=== PATIENT | male | born 1935 | race Caucasian/White ===

== ENCOUNTER 2016-12-28 17:02 | Observation (INO) | payer MEDICARE, OTHER ==
[2016-12-28] MEDS ORDERED: ASPIRIN 81 MG CHEW PO STA (17:24)
[2016-12-28] MEDS ORDERED: NITROGLYCERIN OINT 1 INCH/GM PACKET TOPICAL STA (17:24)
--- NOTE | 2016-12-28 17:27 | ED ---
General Adult HPI - General Chief complaint: Chest Pain Stated complaint: chest pain Time Seen by Provider: 12/28/16 17:05 Source: patient, RN notes reviewed Mode of arrival: wheelchair - History of Present Illness Initial comments: This 81-year-old male who presents emergency Department complaining of chest pain and shortness of breath over the last few hours. Patient states she's had multiple episodes lasting 5-10 minutes. Patient states he has chest pain which radiates up into his left neck and down his left arm. Patient states she's always associated with shortness of breath per patient denies any diaphoretic episodes. Patient denies any nausea. Patient denies lightheadedness dizziness or near syncopal episode. Patient states she has a past medical history significant for borderline diabetes hypertension and high cholesterol and he also has a past history of a valve replacement. Patient states the cow valve so he is not on any blood thinners. Patient denies any abdominal pain. Patient denies any vomiting or diarrhea. Patient denies any fever chills or cough. Patient denies any recent injury or trauma. Patient states currently he is chest pain-free - Related Data Home Medications Medication Instructions Recorded Confirmed Atorvastatin [Lipitor] 20 mg PO HS 01/22/14 12/28/16 Aspirin EC [Ecotrin Low Dose] 81 mg PO QAM 09/14/15 12/28/16 Glimepiride [Amaryl] 1 mg PO QAM 09/14/15 12/28/16 Lisinopril [Zestril] 20 mg PO QAM 09/14/15 12/28/16 Nitroglycerin Sl Tabs [Nitrostat] 0.4 mg SUBLINGUAL Q5M PRN 09/14/15 12/28/16 amLODIPine [Norvasc] 5 mg PO DAILY 09/14/15 12/28/16 Carvedilol [Coreg] 12.5 mg PO BID 12/28/16 12/28/16 Lisinopril [Zestril] 10 mg PO HS 12/28/16 12/28/16 Allergies Allergy/AdvReac Type Severity Reaction Status Date / Time No Known Allergies Allergy Verified 12/28/16 17:28 Review of Systems ROS Statement: Those systems with pertinent positive or pertinent negative responses have been documented in the HPI. ROS Other: All systems not noted in ROS Statement are negative. Past Medical History Past Medical History: Coronary Artery Disease (CAD), Chest Pain / Angina, Diabetes Mellitus, Hyperlipidemia, Hypertension Additional Past Medical History / Comment(s): HX FREQUENT CONSTIPATION, HEART MURMUR, POLYPS, DIVERTICULI. PSA ALWAYS HIGH History of Any Multi-Drug Resistant Organisms: None Reported Past Surgical History: Appendectomy, Heart Catheterization, Hernia Repair Additional Past Surgical History / Comment(s): HEART CATH 07-02-14, hemorrhoidectomy. CATARACTS-WENDY. 2012. Aortic valve replacement 07/09/14 Past Anesthesia/Blood Transfusion Reactions: No Reported Reaction Past Psychological History: No Psychological Hx Reported Smoking Status: Former smoker Past Alcohol Use History: Rare Past Drug Use History: None Reported - Past Family History Sister(s) Family Medical History: Cancer, Deep Vein Thrombosis (DVT) Additional Family Medical History / Comment(s): 2 SISTERS HAD DVT'S IN LEGS, ONE HAD OVARIAN CA General Exam - General Exam Comments Initial Comments: GENERAL: Patient is well-developed and well-nourished. Patient is nontoxic and well- hydrated and is in mild distress. ENT: Neck is soft and supple. No significant lymphadenopathy is noted. Oropharynx is clear. Moist mucous membranes. Neck has full range of motion without eliciting any pain. EYES: The sclera were anicteric and conjunctiva were pink and moist. Extraocular movements were intact and pupils were equal round and reactive to light. Eyelids were unremarkable. PULMONARY: Unlabored respirations. Good breath sounds bilaterally. No audible rales rhonchi or wheezing was noted. CARDIOVASCULAR: There is a regular rate and rhythm without any murmurs gallops or rubs. ABDOMEN: Soft and nontender with normal bowel sounds. No palpable organomegaly was noted. There is no palpable pulsatile mass. SKIN: Skin is clear with no lesions or rashes and otherwise unremarkable. NEUROLOGIC: Patient is alert and oriented x3. Cranial nerves II through XII are grossly intact. Motor and sensory are also intact. Normal speech, volume and content. Symmetrical smile. MUSCULOSKELETAL: Normal extremities with adequate strength and full range of motion. No lower extremity swelling or edema. No calf tenderness. LYMPHATICS: No significant lymphadenopathy is noted PSYCHIATRIC: Normal psychiatric evaluation. Normal interpersonal interactions appears functionally intact in deals appropriately with others. No signs of depression. No signs of anxiety Course Vital Signs 12/28/16 12/28/16 12/28/16 17:05 17:45 18:51 Temperature 97.6 F Pulse Rate 60 56 L 56 L Respiratory 18 18 18 Rate Blood Pressure 185/75 173/77 182/86 O2 Sat by Pulse 96 97 97 Oximetry Medical Decision Making - Medical Decision Making EKG shows a normal sinus rhythm at 62 bpm MA interval 208 QRSs 162 QT intervals 458 QTC is 464. Patient's EKG shows a left bundle branch block I compared this EKG to an old EKG no acute changes are noted. Chest x-ray showed no acute abnormality. I started the patient on heparin. Because of the patient's intermittent symptoms I believe the patient is having unstable angina. I spoke with the primary doctor I admitted the patient I consult for continued heparin and aspirin Nitropaste on the floor. - Lab Data Result diagrams: 12/28/16 17:28 12/28/16 17:28 Lab Results 12/28/16 12/28/16 12/28/16 Range/Units 17:28 17:28 17:28 WBC 6.6 (3.8-10.6) k/uL RBC 5.32 (4.30-5.90) m/uL Hgb 15.7 (13.0-17.5) gm/dL Hct 46.5 (39.0-53.0) % MCV 87.4 (80.0-100.0) fL MCH 29.5 (25.0-35.0) pg MCHC 33.7 (31.0-37.0) g/dL RDW 13.4 (11.5-15.5) % Plt Count 177 (150-450) k/uL Neutrophils % 49 % Lymphocytes % 39 % Monocytes % 7 % Eosinophils % 2 % Basophils % 1 % Neutrophils # 3.3 (1.3-7.7) k/uL Lymphocytes # 2.6 (1.0-4.8) k/uL Monocytes # 0.4 (0-1.0) k/uL Eosinophils # 0.1 (0-0.7) k/uL Basophils # 0.1 (0-0.2) k/uL PT (9.0-12.0) sec INR (<1.1) APTT (22.0-30.0) sec Sodium 141 (137-145) mmol/L Potassium 4.3 (3.5-5.1) mmol/L Chloride 108 H (98-107) mmol/L Carbon Dioxide 21 L (22-30) mmol/L Anion Gap 12 mmol/L BUN 28 H (9-20) mg/dL Creatinine 1.19 (0.66-1.25) mg/dL Est GFR (MDRD) Af Amer >60 (>60 ml/min/1.73 sqM) Est GFR (MDRD) Non-Af 59 (>60 ml/min/1.73 sqM) Glucose 118 H (74-99) mg/dL Calcium 9.4 (8.4-10.2) mg/dL Magnesium 1.8 (1.6-2.3) mg/dL Total Bilirubin 0.8 (0.2-1.3) mg/dL AST 27 (17-59) U/L ALT 37 (21-72) U/L Alkaline Phosphatase 92 (38-126) U/L Total Creatine Kinase 57 (55-170) U/L CK-MB (CK-2) 0.9 (0.0-2.4) ng/mL CK-MB (CK-2) Rel Index 1.6 Troponin I <0.012 (0.000-0.034) ng/mL Total Protein 7.7 (6.3-8.2) g/dL Albumin 4.4 (3.5-5.0) g/dL / Range/Units 17:28 WBC (3.8-10.6) k/uL RBC (4.30-5.90) m/uL Hgb (13.0-17.5) gm/dL Hct (39.0-53.0) % MCV (80.0-100.0) fL MCH (25.0-35.0) pg MCHC (31.0-37.0) g/dL RDW (11.5-15.5) % Plt Count (150-450) k/uL Neutrophils % % Lymphocytes % % Monocytes % % Eosinophils % % Basophils % % Neutrophils # (1.3-7.7) k/uL Lymphocytes # (1.0-4.8) k/uL Monocytes # (0-1.0) k/uL Eosinophils # (0-0.7) k/uL Basophils # (0-0.2) k/uL PT 10.6 (9.0-12.0) sec INR 1.0 (<1.1) APTT 21.9 L (22.0-30.0) sec Sodium (137-145) mmol/L Potassium (3.5-5.1) mmol/L Chloride (98-107) mmol/L Carbon Dioxide (22-30) mmol/L Anion Gap mmol/L BUN (9-20) mg/dL Creatinine (0.66-1.25) mg/dL Est GFR (MDRD) Af Amer (>60 ml/min/1.73 sqM) Est GFR (MDRD) Non-Af (>60 ml/min/1.73 sqM) Glucose (74-99) mg/dL Calcium (8.4-10.2) mg/dL Magnesium (1.6-2.3) mg/dL Total Bilirubin (0.2-1.3) mg/dL AST (17-59) U/L ALT (21-72) U/L Alkaline Phosphatase (38-126) U/L Total Creatine Kinase (55-170) U/L CK-MB (CK-2) (0.0-2.4) ng/mL CK-MB (CK-2) Rel Index Troponin I (0.000-0.034) ng/mL Total Protein (6.3-8.2) g/dL Albumin (3.5-5.0) g/dL Critical Care Time Critical Care Time: Yes Total Critical Care Time: 35 Disposition Clinical Impression: Unstable angina pectoris Disposition: ADMITTED IP TO THIS [facility] Time of Disposition: 19:03
[2016-12-28 17:43] LABS: Basophils # (A) 0.1 k/uL (0-0.2); Basophils % (A) 1 %; CH 30.4; CHCM 34.9; Eosinophils # (A) 0.1 k/uL (0-0.7); Eosinophils % (A) 2 %; HCT 46.5 % (39.0-53.0); HDW 2.77; HGB 15.7 gm/dL (13.0-17.5); Luc # (Auto) 0.14; Luc % (Auto) 2; Lymphocytes # (A) 2.6 k/uL (1.0-4.8); Lymphocytes % (A) 39 %; MCH 29.5 pg (25.0-35.0); MCHC 33.7 g/dL (31.0-37.0); MCV 87.4 fL (80.0-100.0); Mean Platelet Volume 7.4; Monocytes # (A) 0.4 k/uL (0-1.0); Monocytes % (A) 7 %; Neutrophils # (A) 3.3 k/uL (1.3-7.7); Neutrophils % (A) 49 %; RBC 5.32 m/uL (4.30-5.90); RDW 13.4 % (11.5-15.5); WBC 6.6 k/uL (3.8-10.6); WBC (Perox) 6.62
[2016-12-28 17:51] LABS: Prothrombin Time 10.6 sec (9.0-12.0)
[2016-12-28 17:53] LABS: ALT 37 U/L (21-72); AST 27 U/L (17-59); Alkaline Phosphatase 92 U/L (38-126); Anion Gap 12 mmol/L; Blood Urea Nitrogen 28 mg/dL (9-20); Calcium 9.4 mg/dL (8.4-10.2); Carbon Dioxide 21 mmol/L (22-30); Chloride 108 mmol/L (98-107); Glucose 118 mg/dL (74-99); Magnesium 1.8 mg/dL (1.6-2.3); Non-African American GFR(MDRD) 59 (>60 ml/min/1.73 sqM); Potassium 4.3 mmol/L (3.5-5.1); Sodium 141 mmol/L (137-145); Total Bilirubin 0.8 mg/dL (0.2-1.3); Total Protein 7.7 g/dL (6.3-8.2)
[2016-12-28 17:57] LABS: Partial Thromboplastin Time 21.9 sec (22.0-30.0)
[2016-12-28 18:02] LABS: Creatine Kinase 57 U/L (55-170)
[2016-12-28 18:14] LABS: Creatine Kinase MB 0.9 ng/mL (0.0-2.4); Troponin I <0.012 ng/mL (0.000-0.034)
--- NOTE | 2016-12-28 18:22 | XR ---
EXAMINATION TYPE: XR chest 2V DATE OF EXAM: 12/28/2016 5:48 PM COMPARISON: NONE HISTORY: Chest pain TECHNIQUE: Frontal and lateral views of the chest are obtained. FINDINGS: Midline sternotomy wires are present. There is no focal air space opacity, pleural effusion , or pneumothorax seen. The cardiac silhouette size is within normal limits. The osseous structure s are intact. IMPRESSION: No acute cardiopulmonary process.
[2016-12-28] MEDS ORDERED: LORazepam 2 MG/ML SYRINGE IV STA (19:02)
[2016-12-28] MEDS ORDERED: NITROGLYCERIN SL TABS 0.4 MG TAB SUBLINGUAL PRN (19:03)
[2016-12-28 21:40] LABS: Glucose,Whole Blood 123 mg/dL (75-99)
[2016-12-28] MEDS ORDERED: LISINOPRIL 10 MG TAB PO SCH (22:15)
[2016-12-28] MEDS ORDERED: ATORVASTATIN 20 MG TAB PO SCH (22:15)
[2016-12-28] MEDS: CARVEDILOL 12.5 MG TAB PO SCH (23:49)
[2016-12-29] MEDS ORDERED: NITROGLYCERIN OINT 1 INCH/GM PACKET TOPICAL SCH
[2016-12-29 01:11] LABS: Creatine Kinase 43 U/L (55-170)
[2016-12-29 01:23] LABS: Creatine Kinase MB 0.9 ng/mL (0.0-2.4); Troponin I <0.012 ng/mL (0.000-0.034)
[2016-12-29 06:11] LABS: Creatine Kinase 41 U/L (55-170)
[2016-12-29 06:17] LABS: Cholesterol 126 mg/dL (<200); HDL Cholesterol 38 mg/dL (40-60); Triglycerides 173 mg/dL (<150)
[2016-12-29 06:24] LABS: Creatine Kinase MB 0.7 ng/mL (0.0-2.4); Troponin I <0.012 ng/mL (0.000-0.034)
[2016-12-29 07:26] LABS: Glucose,Whole Blood 163 mg/dL (75-99)
[2016-12-29] MEDS ORDERED: FUROSEMIDE 10 MG/ML 4 ML VIAL IV STA (08:56)
[2016-12-29] MEDS ORDERED: amLODIPine 5 MG TAB PO SCH (09:00)
[2016-12-29] MEDS ORDERED: FUROSEMIDE 40 MG TAB PO SCH (09:00)
[2016-12-29] MEDS ORDERED: LISINOPRIL 20 MG TAB PO SCH (09:00)
[2016-12-29] MEDS ORDERED: GLIMEPIRIDE 1 MG TAB PO SCH (09:00)
[2016-12-29] MEDS ORDERED: ASPIRIN 325 MG TAB PO SCH (09:00)
[2016-12-29 09:13] VITALS: BMI 27.6
--- NOTE | 2016-12-29 09:31 | CONS ---
DATE OF CONSULTATION: This is a 81-year-old male patient of Dr. Joy Wilson who has valvular heart disease, status post aortic valve replacement in 2014. He had documented nonobstructive CAD and cardiomyopathy with ejection fraction of 30%. He presents to the hospital with shortness of breath, sometimes at night, but definitely when he walks around into the [place]. He is complaining of progressive increase in shortness of breath with exertion. In addition, he started having some neck discomfort which went down to his arm and chest at that worried him, so he came to the ER. He is on statins and aspirin. His cardiac enzymes so far have been normal x3. His LDL is 53 on dorsum 20 mg daily. He is on aspirin. He has bioprosthetic valve I do not have her BNP and p.r.n. his GFR is 59. His creatinine was 1.2. Potassium is normal. Hemoglobin is normal. Past medical history of diabetes, hypertension, dyslipidemia, coronary artery disease nonobstructive and mild chronic kidney disease stage III. SOCIAL HISTORY: He is a heavy smoker. He quit many years back. He would consume significant amounts of alcohol in the past and he has stopped. He has a left ventricular ejection fraction of 30% to 35% documented in 2014. He also had severe aortic stenosis and underwent aortic valve replacement in 2014. REVIEW OF SYSTEMS: No fever, chills, rigors. No cough or expectoration. No nausea, vomiting or diarrhea, hematuria or dysuria. No strokes or seizures. No skin lesions or musculoskeletal complaints. His main complaint is shortness of breath on exertion, shortness of breath while lying flat in bed. His medication list was reviewed and includes: 1. Amaryl. 2. Aspirin. 3. Amlodipine. 4. Lisinopril. 5. Carvedilol. 6. Atorvastatin. On examination, his blood pressure is 112/57 and 134/75 mmHg. He is afebrile, 97.4 degrees Fahrenheit. Pulse ox is normal. Respirations are normal. Head and neck examination is normal. Heart sounds S1, S2 are soft. There is a soft systolic murmur, ejection systolic murmur audible. No S3 gallop. Breath sounds are reduced bilaterally. Abdomen is soft, nontender. Extremities are warm. There is trace bilateral edema. IMPRESSION: 1. Patient presented with symptoms consistent with congestive heart failure and increasing shortness of breath on exertion and even some breathing trouble at night. 2. Atypical discomfort in the chest and the neck and the arm. 3. Known cardiomyopathy, nonischemic. 4. Valvular heart disease, status post aortic valve replacement. 5. Nonobstructive coronary artery disease, LDL is at very good levels on atorvastatin. 6. A 12-lead ECG shows sinus rhythm with a left bundle branch block pattern. SUGGEST: A 2-D echo and Doppler study to assess LV function. Consider a Lexiscan Cardiolite stress test and add Lasix 40 mg p.o. daily to his current regimen and BNP to yesterday's sample. The nitro paste can be stopped and ended up in further management thereafter.
[2016-12-29] MEDS ORDERED: AMINOPHYLLINE 500 MG/20 ML VIAL IV PRN (10:02)
[2016-12-29] MEDS ORDERED: REGADENOSON 0.4 MG/5 ML SYRINGE IV ONE (10:02)
--- NOTE | 2016-12-29 11:55 | ECHOF ---
Referral Reason:sob, avr MEASUREMENTS -------- HEIGHT: 165.1 cm WEIGHT: 77.6 kg BP: 120/40 IVSd: 1.4 cm (0.6 - 1.1) LVIDd: 4.2 cm (3.9 - 5.3) LVPWd: 1.3 cm (0.6 - 1.1) IVSs: 1.6 cm LVIDs: 4.1 cm LVPWs: 1.4 cm LA Diam: 3.8 cm (2.7 - 3.8) LAESV Index (A-L): 35.37 ml/m Ao Diam: 3.3 cm (2.0 - 3.7) LA Diam: 3.7 cm (2.7 - 3.8) MV EXCURSION: 17.354 mm (> 18.000) MV EF SLOPE: 28 mm/s (70 - 150) EPSS: 1.2 cm MV E Kingston: 0.42 m/s MV DecT: 323 ms MV A [place]: 0.73 m/s MV E/A Ratio: 0.58 AV maxP.36 mmHg AV meanP.37 mmHg RAP: 5.00 mmHg RVSP: 12.60 mmHg FINDINGS -------- Sinus rhythm. This was a technically adequate study. There is moderate concentric left ventricular hypertrophy. Overall left ventricular systolic function is low-normal with, an EF between 50 - 55 %. The right ventricle is normal in size. LA is moderately dilated 34-39 ml/m2 The right atrial size is normal. Peak/mean gradient across the Aortic Valve is 8.36mmHg / 4.37mmHg. Normally functioning bioprosthetic valve. Mild mitral annular calcification present. Mild mitral regurgitation is present. Mild tricuspid regurgitation present. There is no evidence of pulmonary hypertension. The right ventricular systolic pressure, as measured by Doppler, is 12.60mmHg. There is no pulmonic regurgitation present. The aortic root size is normal. There is no pericardial effusion. CONCLUSIONS -------- 1. There is moderate concentric left ventricular hypertrophy. 2. The right ventricular systolic pressure, as measured by Doppler, is 12.60mmHg. 3. There is no pericardial effusion. 4. Overall left ventricular systolic function is low-normal with, an EF between 50 - 55 %. 5. LA is moderately dilated 34-39 ml/m2 6. Peak/mean gradient across the Aortic Valve is 8.36mmHg / 4.37mmHg. 7. Normally functioning bioprosthetic valve. 8. Mild mitral annular calcification present. 9. Mild mitral regurgitation is present. 10. Mild tricuspid regurgitation present. 11. There is no evidence of pulmonary hypertension. AUT[employer]BILE [employer]PHOL[employer] APPRENTICE: Alda Gaona RDCS
[2016-12-29 13:02] LABS: Glucose,Whole Blood 133 mg/dL (75-99)
[2016-12-29] MEDS: CARVEDILOL 12.5 MG TAB PO SCH ×2 (13:15→18:04)
--- NOTE | 2016-12-29 14:52 | NM ---
EXAMINATION TYPE: NM stress lexiscan cardiolite DATE OF EXAM: 12/29/2016 1:14 PM COMPARISON: NONE HISTORY: Abdominal pain TECHNIQUE: After the intravenous administration of 10.91 mCi Tc 99m Sestamibi - Cardiolite resting S PECT images acquired 45 minutes post injection. The patient received 0.4mg Lexiscan, 27.0 mCi Tc 99m Sestamibi - Stress images obtained [address] injection FINDINGS: Review of stress and rest SPECT images demonstrates no distinct perfusion abnormality. Gated analysi s shows normal wall motion with an estimated left ventricular ejection fraction of 46 %. IMPRESSION: No scintigraphic evidence for reversible ischemia.
[2016-12-29 16:27] VITALS: BP 130/77; PULSE 60; RESP 14; TEMP 97.9
[2016-12-29 17:16] LABS: Glucose,Whole Blood 121 mg/dL (75-99)
--- NOTE | 2016-12-30 07:09 | HP ---
DATE OF ADMISSION: CHIEF COMPLAINT: Chest pain. HISTORY OF PRESENT ILLNESS: Mr. Felix is a 81-year-old male with known history of nonobstructive coronary artery disease and nonischemic cardiomyopathy with ejection fraction of 30-35% previously in 2013, came to the hospital with complaints of short of breath, sometimes at night patient feels like drowning. ( ) wakes up with short of breath. Patient has been having this progressively increasing short of breath with exertion. Patient also developed chest pain and neck discomfort going down his left arm and that worried him, which made him come to the hospital ER. Patient has a past history of borderline diabetes, hypertension, high cholesterol, and history of aortic valve replacement, bovine valve. Patient otherwise denied any abdominal pain, nausea or vomiting. No recent illnesses. No sick contacts at home. Denied any injury or trauma. REVIEW OF SYSTEMS: CONSTITUTIONAL: No fever. No chills. RESPIRATORY: No cough or sputum production. CARDIOVASCULAR: No chest pain. Patient does have short of breath. No leg swelling. ABDOMEN: No nausea, vomiting, abdominal pain, GENITOURINARY: Negative. ENDOCRINE: Negative. PSYCHIATRY: Negative. SKIN: Negative. All other fourteen-point review of systems negative except as above. Past medical history includes coronary artery disease nonobstructive, chest pain/angina, diabetes mellitus, hypertension, hyperlipidemia, constipation, heart murmur, history of diabetes, polyps and PSA is high. PAST SURGICAL HISTORY: Appendectomy, hernia repair, cardiac catheterization, hemorrhoidectomy, and cataract surgery, aortic valve replacement in 2013. No psychosocial history. SOCIAL HISTORY: Patient is a former smoker; quit several years ago. Occasional alcohol use. Denied any drugs or IVDU. FAMILY HISTORY: Sister has cancer and DVT. Two sisters had DVTs in legs, one had ovarian cancer. Patient ( ) nonischemic cardiomyopathy with ejection fraction 30 to 35% previously. ALLERGIES: No known drug allergies. Home medications include: Atorvastatin, aspirin, glimepiride, lisinopril, nitroglycerin sublingual p.r.n., amlodipine, Coreg and lisinopril. PHYSICAL EXAMINATION: A 81-year-old male lying in bed, awake, alert and oriented x3, appears to be in no apparent distress. VITALS: Blood pressure is 187/87, pulse is 69, respirations 16, temperature afebrile, pulse ox 97% on room air. HEENT: Atraumatic, normocephalic. Neck is supple. No JVD. CVS: S1, S2 heard. No murmurs, no gallop. Patient has systolic murmur. No gallop, no rub. LUNGS: Bilateral air entry is present. No wheezing. No crackles. ABDOMEN: Soft, nontender, bowel sounds present x3. No focal deficit. EXTREMITIES: No edema. Pulses palpable bilaterally reds. No clubbing or cyanosis. PSYCHIATRIC: Cooperative. LABORATORY DATA: WBC 6.6, hemoglobin 15.7, platelets 177, INR 1.0. Sodium 141, potassium 4.3, chloride 108, bicarb is 21, BUN 28, creatinine 1.19. Blood sugar is 108. Liver enzymes are not elevated. Albumin 4.4. LDL is 53. EKG showed normal sinus rhythm. Chest x-ray, no acute cardiopulmonary process. A 2-D echo showed moderate concentrate left ventricular hypertrophy and ejection fraction 30 to 35+, no pulmonary hypertension and normally functioning bioprosthetic valve. IMPRESSION: 1. Exertional shortness of breath and trouble breathing at night probably due to congestive heart failure with uncontrolled hypertension. 2. Uncontrolled hypertension. 3. Atypical chest pain rule out acute coronary syndrome. 4. History of nonischemic cardiogram, ejection fraction 30 to 35%. 5. History of valvular heart disease, status post aortic valve replacement in 2013. 6. Nonobstructive coronary artery disease. Discussion and plan: Patient was seen by Cardiology and serial EKGs and troponins are negative. Lexiscan stress test was ordered. Patient was started on Lasix at this time and BNP level is 508. Will continue with telemonitoring and further recommendations based on clinical course.
--- NOTE | 2016-12-30 12:03 | EST ---
DATE OF SERVICE: 12/29/16. AGE: 81Y SEX: M HT: 5'6" WT: 171 lbs. Protocol Neil: Other: X Stage: Dur. of Exercise: *Heart Rate Blood Pressure *Rest: 69 Rest: 189/82 * *Max. Achieved: 84 Maximum BP: 149/76 85% PMHR: 120 100% PMHR: 141 *METS: INDICATIONS: Unstable angina. MEDICATIONS: The test is being done to evaluate chest pain. Baseline EKG showed sinus rhythm with a left bundle branch block pattern. Blood pressure at rest is 189/82 with a pulse rate of 69. A standard dose of Lexiscan was infused. EKGs did not reveal any changes from the baseline. FINAL IMPRESSION: 1. Nondiagnostic Lexiscan stress test because of baseline EKG changes. 2. Report on the nuclear images to be given by the radiologist.
--- NOTE | 2016-12-30 13:25 | DS ---
DATE OF ADMISSION: 12/28/2016 DATE OF DISCHARGE: 12/29/2016 CONSULTATION: Cardiology consultation. PROCEDURE PERFORMED: Lexiscan stress test and 2D echocardiogram. DISCHARGE DIAGNOSES: 1. Aggressive short of breath with possible underlying congestive heart failure with uncontrolled hypertension. 2. Uncontrolled hypertension. 3. Atypical chest pain. Rule out acute coronary syndrome. Lexiscan stress test is negative. 4. History of nonischemic cardiomyopathy. 5. History of nonobstructive coronary artery disease. 6. EKG showed sinus rhythm and left bundle branch block. 7. Hypertension. 8. Diabetes mellitus. 9. History of aortic valve replacement in 2013. HOSPITAL COURSE: Mr. Felix is a 81-year-old male with known history of multiple cardiac problems admitted to the hospital with short of breath with exertion which has been getting worse. Even sometimes he woke up with shortness of breath and unable to catch his breath. Patient was seen in the ER and the patient had EKG and troponins x3 negative. Patient was telemonitored in the hospital. No arrhythmia noted. Otherwise, the patient was seen by cardiology and recommended Lexiscan stress test and chest x-ray with underlying CHF. BNP is not really elevated. Patient also had uncontrolled hypertension and Lasix has been added to his medications. Stress test came out negative. Otherwise, the patient was advised to take the medications and follow with primary doctor and power transmission engineer as an outpatient. Patient is currently hemodynamically stable to be discharged home. DISCHARGE PHYSICAL EXAMINATION: 81-year-old male lying in bed awake, alert and oriented times three. Appears to be in no apparent distress. VITALS: Blood pressure is 130/77, pulse is 60, respirations 44, temperature afebrile, pulse ox 93% on room air. Laboratory data reviewed. Discharge physical examination done. Discharge medications include: 1. Atorvastatin 20 mg p.o. at bedtime. 2. Aspirin 81 mg p.o. in the morning. 3. Amaryl 1 mg p.o. each morning. 4. Lisinopril 20 mg p.o. in the morning. 5. Nitroglycerin sublingual 0.4 mg sublingual q.5 minutes p.r.n. for chest pain. 6. Amlodipine 5 mg p.o. daily. 7. Coreg 12.5 mg p.o. b.i.d. 8. Zestril 10 mg p.o. at bedtime. 9. Lasix 40 mg p.o. daily. Patient will be discharged home in stable condition. Activity as tolerated. Heart healthy diet. Follow up with Dr. Roth in one to two days. Home with self-care.
== END 2016-12-29 18:10 | disposition home or self-care (01) ==
LOC: EC 17:02 → 3OBS 19:03
PROVIDERS: ADMIT Hospitalist; ATTEND Hospitalist
DX: R06.02 Shortness of breath (principal); M54.2 Cervicalgia; R07.89 Other chest pain; M79.602 Pain in left arm; Z79.899 Other long term (current) drug therapy; I25.10 Atherosclerotic heart disease of native coronary artery without angina pectoris; I42.9 Cardiomyopathy, unspecified; I44.7 Left bundle-branch block, unspecified; Z95.2 Presence of prosthetic heart valve; I12.9 Hypertensive chronic kidney disease with stage 1 through stage 4 chronic kidney disease, or unspecified chronic kidney disease; E11.22 Type 2 diabetes mellitus with diabetic chronic kidney disease; N18.3 Chronic kidney disease, stage 3 (moderate); Z87.891 Personal history of nicotine dependence; Z80.41 Family history of malignant neoplasm of ovary; Z79.84 Long term (current) use of oral hypoglycemic drugs; Z79.82 Long term (current) use of aspirin; E78.5 Hyperlipidemia, unspecified; E78.00 Pure hypercholesterolemia, unspecified
CPT/HCPCS: 93005 ×2; 96375; 96374; 99285; 36415; 93017; 93306; 83880; 80061; 80053; 82550 ×2; 82553 ×2; 83735; 84484 ×2; 85025; 85610; 85730; 71020; 78452; G0378 ×2; A9500; J2060; J1940; J2785

== ENCOUNTER 2020-03-07 17:05 | Emergency (ER) | payer MEDICARE, OTHER ==
[2020-03-07 17:17] VITALS: RESP 18; TEMP 98.2
[2020-03-07] MEDS ORDERED: NITROGLYCERIN OINT 1 INCH/GM PACKET TOPICAL STA (17:30)
[2020-03-07] MEDS ORDERED: ASPIRIN 81 MG PO STA (17:30)
--- NOTE | 2020-03-07 17:36 | ED ---
General Adult HPI - General Chief complaint: Chest Pain Stated complaint: SOB, Chest Pain Time Seen by Provider: 03/07/20 17:15 Source: patient, RN notes reviewed, old records reviewed Mode of arrival: ambulatory Limitations: no limitations - History of Present Illness Initial comments: This is an 84-year-old male who presents emergency department. Stating that earlier today started having a diaphoretic episode and then heaviness in both arms and he had some chest heaviness tightness right side of his chest. Patient states the episode lasted between 45 minutes to an hour. Patient denies any nausea. Patient denies shortness of breath. Patient states the symptoms eventually resolved and now he feels back to his baseline. Patient thought it w as concerning enough to come to the emergency department. Patient denies currently smoking but he did smoke for 30 years. Patient states she has diabetes hypertension high cholesterol. Patient states she also has multiple family members with heart disease. Patient denies any fever chills or cough. Patient denies any headache patient denies lightheadedness or dizziness. Patient denies any numbness or weakness. Patient states he does not want to stay in the hospital. - Related Data Home Medications Medication Instructions Recorded Confirmed Atorvastatin [Lipitor] 20 mg PO HS 01/22/14 12/14/18 Aspirin EC [Ecotrin Low Dose] 81 mg PO QAM 09/14/15 12/14/18 Glimepiride [Amaryl] 1 mg PO BID 09/14/15 12/14/18 Nitroglycerin Sl Tabs [Nitrostat] 0.4 mg SUBLINGUAL Q5M PRN 09/14/15 12/14/18 amLODIPine [Norvasc] 5 mg PO DAILY 09/14/15 12/14/18 lisinopriL [Zestril] 20 mg PO QAM 09/14/15 12/14/18 Carvedilol [Coreg] 12.5 mg PO BID 12/28/16 12/14/18 Previous Rx's Medication Instructions Recorded Amoxicillin/Potassium Clav 1 tab PO Q12HR #14 tab 12/18/18 [Augmentin 875-125 Tablet] Allergies Allergy/AdvReac Type Severity Reaction Status Date / Time No Known Allergies Allergy Verified 03/07/20 17:17 Review of Systems ROS Statement: Those systems with pertinent positive or pertinent negative responses have been documented in the HPI. ROS Other: All systems not noted in ROS Statement are negative. Past Medical History Past Medical History: Coronary Artery Disease (CAD), Chest Pain / Angina, Heart Failure, Dementia, Diabetes Mellitus, Hyperlipidemia, Hypertension, Prostate Disorder Additional Past Medical History / Comment(s): NIDDM type II, neuropathy bilateral feet, nonischemic cardiomyopathy, BPH/PSA always high, frequent const ipation, benign colon polyp, diverticular dx. History of Any Multi-Drug Resistant Organisms: None Reported Past Surgical History: Appendectomy, Heart Catheterization, Hernia Repair Additional Past Surgical History / Comment(s): HEART CATH 07-02-14, Aortic valve replacement-bovine tissue valve 07/09/14, colonoscopy/benign polyp, hemorrhoidectomy, CATARACTS-[facility]. 2011, Past Anesthesia/Blood Transfusion Reactions: No Reported Reaction Past Psychological History: Depression Smoking Status: Former smoker Past Alcohol Use History: None Reported Past Drug Use History: None Reported - Past Family History Sister(s) Family Medical History: Cancer, Deep Vein Thrombosis (DVT) Additional Family Medical History / Comment(s): 2 SISTERS HAD DVT'S IN LEGS, ONE HAD OVARIAN CA Mother History Unknown: Yes Additional Family Medical History / Comment(s): Mother never discussed her health. Father Additional Family Medical History / Comment(s): Father did not believe in going to the doctors. General Exam - General Exam Comments Initial Comments: GENERAL: Patient is well-developed and well-nourished. Patient is nontoxic and well- hydrated and is in no acute distress. ENT: Neck is soft and supple. No significant lymphadenopathy is noted. Oropharynx is clear. Moist mucous membranes. Neck has full range of motion without eliciting any pain. EYES: The sclera were anicteric and conjunctiva were pink and moist. Extraocular movements were intact and pupils were equal round and reactive to light. Eyelids were unremarkable. PULMONARY: Unlabored respirations. Good breath sounds bilaterally. No audible rales rhonchi or wheezing was noted. CARDIOVASCULAR: There is a regular rate and rhythm without any murmurs gallops or rubs. ABDOMEN: Soft and nontender with normal bowel sounds. SKIN: Skin is clear with no lesions or rashes and otherwise unremarkable. NEUROLOGIC: Patient is alert and oriented x3. Cranial nerves II through XII are grossly intact. Motor and sensory are also intact. Normal speech, volume and content. Symmetrical smile. MUSCULOSKELETAL: Normal extremities with adequate strength and full range of motion. No lower extremity swelling or edema. No calf tenderness. LYMPHATICS: No significant lymphadenopathy is noted PSYCHIATRIC: Normal psychiatric evaluation. Limitations: no limitations Course Vital Signs 03/07/20 03/07/20 17:13 18:40 Temperature 98.2 F Pulse Rate 70 Respiratory 18 18 Rate Blood Pressure 187/79 O2 Sat by Pulse 96 Oximetry Medical Decision Making - Medical Decision Making EKG shows sinus rhythm with occasional PVC at 66 bpm OH interval 298 QRS is u nder 44 Q-T intervals 436 QTC is 457. Patient's EKG shows left bundle branch block. Patient's chest x-ray shows no acute abnormality. I went back to reinterview the patient he continued to be pain-free I told the patient he should stay because of his unstable angina picture and the significant risk factors that he has patient absolutely refused and stated he would sign out AGAINST MEDICAL ADVICE even though he knew the risks of possible morbidity and mortality. - Lab Data Result diagrams: 03/07/20 17:55 03/07/20 17:55 Lab Results 03/07/20 03/07/20 03/07/20 Range/Units 17:55 17:55 17:55 WBC 7.0 (3.8-10.6) k/uL RBC 5.58 (4.30-5.90) m/uL Hgb 16.2 (13.0-17.5) gm/dL Hct 48.2 (39.0-53.0) % MCV 86.4 (80.0-100.0) fL MCH 28.9 (25.0-35.0) pg MCHC 33.5 (31.0-37.0) g/dL RDW 12.6 (11.5-15.5) % Plt Count 173 (150-450) k/uL Neutrophils % 61 % Lymphocytes % 28 % Monocytes % 6 % Eosinophils % 3 % Basophils % 1 % Neutrophils # 4.3 (1.3-7.7) k/uL Lymphocytes # 2.0 (1.0-4.8) k/uL Monocytes # 0.4 (0-1.0) k/uL Eosinophils # 0.2 (0-0.7) k/uL Basophils # 0.1 (0-0.2) k/uL PT 10.2 (9.0-12.0) sec INR 1.0 (<1.2) APTT 23.6 (22.0-30.0) sec Sodium 140 (137-145) mmol/L Potassium 4.1 (3.5-5.1) mmol/L Chloride 105 (98-107) mmol/L Carbon Dioxide 24 (22-30) mmol/L Anion Gap 11 mmol/L BUN 20 (9-20) mg/dL Creatinine 1.03 (0.66-1.25) mg/dL Est GFR (CKD-EPI)AfAm 78 (>60 ml/min/1.73 sqM) Est GFR (CKD-EPI)NonAf 68 (>60 ml/min/1.73 sqM) Glucose 177 H (74-99) mg/dL Calcium 9.6 (8.4-10.2) mg/dL Magnesium 1.7 (1.6-2.3) mg/dL Total Bilirubin 1.0 (0.2-1.3) mg/dL AST 29 (17-59) U/L ALT 28 (4-49) U/L Alkaline Phosphatase 149 H (38-126) U/L Troponin I (0.000-0.034) ng/mL NT-Pro-B Natriuret Pep pg/mL Total Protein 7.8 (6.3-8.2) g/dL Albumin 4.7 (3.5-5.0) g/dL 03/07/20 03/07/20 Range/Units 17:55 17:55 WBC (3.8-10.6) k/uL RBC (4.30-5.90) m/uL Hgb (13.0-17.5) gm/dL Hct (39.0-53.0) % MCV (80.0-100.0) fL MCH (25.0-35.0) pg MCHC (31.0-37.0) g/dL RDW (11.5-15.5) % Plt Count (150-450) k/uL Neutrophils % % Lymphocytes % % Monocytes % % Eosinophils % % Basophils % % Neutrophils # (1.3-7.7) k/uL Lymphocytes # (1.0-4.8) k/uL Monocytes # (0-1.0) k/uL Eosinophils # (0-0.7) k/uL Basophils # (0-0.2) k/uL PT (9.0-12.0) sec INR (<1.2) APTT (22.0-30.0) sec Sodium (137-145) mmol/L Potassium (3.5-5.1) mmol/L Chloride (98-107) mmol/L Carbon Dioxide (22-30) mmol/L Anion Gap mmol/L BUN (9-20) mg/dL Creatinine (0.66-1.25) mg/dL Est GFR (CKD-EPI)AfAm (>60 ml/min/1.73 sqM) Est GFR (CKD-EPI)NonAf (>60 ml/min/1.73 sqM) Glucose (74-99) mg/dL Calcium (8.4-10.2) mg/dL Magnesium (1.6-2.3) mg/dL Total Bilirubin (0.2-1.3) mg/dL AST (17-59) U/L ALT (4-49) U/L Alkaline Phosphatase (38-126) U/L Troponin I <0.012 (0.000-0.034) ng/mL NT-Pro-B Natriuret Pep 458 pg/mL Total Protein (6.3-8.2) g/dL Albumin (3.5-5.0) g/dL Disposition Clinical Impression: Unstable angina pectoris Disposition: Left Against Medical Advice Referrals: Luigi Roth MD [Primary Care Provider] - 1-2 days Time of Disposition: 18:46
[2020-03-07 18:07] LABS: Basophils # (A) 0.1 k/uL (0-0.2); Basophils % (A) 1 %; Eosinophils # (A) 0.2 k/uL (0-0.7); Eosinophils % (A) 3 %; HCT 48.2 % (39.0-53.0); HGB 16.2 gm/dL (13.0-17.5); Lymphocytes % (A) 28 %; MCH 28.9 pg (25.0-35.0); MCHC 33.5 g/dL (31.0-37.0); MCV 86.4 fL (80.0-100.0); Monocytes # (A) 0.4 k/uL (0-1.0); Monocytes % (A) 6 %; Neutrophils # (A) 4.3 k/uL (1.3-7.7); Neutrophils % (A) 61 %; Platelet Count 173 k/uL (150-450); RBC 5.58 m/uL (4.30-5.90); RDW 12.6 % (11.5-15.5)
[2020-03-07 18:19] LABS: Albumin 4.7 g/dL (3.5-5.0); Calcium 9.6 mg/dL (8.4-10.2); Magnesium 1.7 mg/dL (1.6-2.3); Partial Thromboplastin Time 23.6 sec (22.0-30.0); Potassium 4.1 mmol/L (3.5-5.1); Prothrombin Time 10.2 sec (9.0-12.0); Total Protein 7.8 g/dL (6.3-8.2)
--- NOTE | 2020-03-07 18:37 | XR ---
EXAMINATION: XR chest 2V DATE AND TIME: 03/07/2020 6:22 PM CLINICAL INDICATION: PHH; Chest Pain TECHNIQUE: Departmental protocol COMPARISON: 12/15/2018 FINDINGS: Sternal sutures and mediastinal clips and EKG leads noted. The lungs are negative for acute findings. The pleural spaces are negative. The cardiac silhouette is not enlarged. The remainder of the mediastinal silhouette is unremarkable. The skeletal structures and soft tissues are negative for acute findings. IMPRESSION: No acute radiographic process.
[2020-03-07 19:14] VITALS: BP 170/85; PULSE 76
== END 2020-03-07 19:15 | disposition left against medical advice (07) ==
LOC: EC 17:05
DX: I25.110 Atherosclerotic heart disease of native coronary artery with unstable angina pectoris (principal); I11.0 Hypertensive heart disease with heart failure; I50.9 Heart failure, unspecified; Z53.29 Procedure and treatment not carried out because of patient's decision for other reasons; I44.7 Left bundle-branch block, unspecified; I49.3 Ventricular premature depolarization; E11.40 Type 2 diabetes mellitus with diabetic neuropathy, unspecified; E78.5 Hyperlipidemia, unspecified; E78.00 Pure hypercholesterolemia, unspecified; Z79.82 Long term (current) use of aspirin; Z79.84 Long term (current) use of oral hypoglycemic drugs; Z79.899 Other long term (current) drug therapy; Z79.02 Long term (current) use of antithrombotics/antiplatelets; Z87.891 Personal history of nicotine dependence; Z95.3 Presence of xenogenic heart valve
CPT/HCPCS: 36415; 71046; 80053; 83735; 83880; 84484; 85025; 85610; 85730; 93005; 99285

== ENCOUNTER 2020-03-26 07:15 | Day surgery (SDC) | payer MEDICARE, OTHER ==
[2020-03-25 09:51] VITALS: BMI 29.4
[~2020-03-26 07:15] MED LIST: LACTATED RINGERS 1,000 ML IV SCH; LIDOCAINE 1% (10MG/ML) FOR IV START INTRADERMA PRN
[2020-03-26 07:45] VITALS: TEMP 98.8
[2020-03-26 07:58] LABS: Glucose,Whole Blood 187 mg/dL (75-99)
[2020-03-26] MEDS ORDERED: PROPOFOL 10 MG/ML 20 ML VIAL IV ONE (08:11)
--- NOTE | 2020-03-26 08:45 | P.PCN ---
Date of Procedure: 03/26/20 Description of Procedure: BRIEF HISTORY: Patient is an 86-year-old male presenting for evaluation of abdominal pain and change in bowel habits with colonoscopy. Patient has been experiencing intermittent episodes of lower abdominal pain described as cramping and severe in nature usually occurs at night and in association with constipation with incomplete evacuation, with worsening constipation. Symptoms were present for approximately one year. Last colonoscopy 5-6 years ago. PROCEDURE PERFORMED: Colonoscopy with polypectomy. PREOPERATIVE DIAGNOSIS: Change in bowel habits, abdominal pain. ESTIMATED BLOOD LOSS: Minimal. IV sedation per Anesthesia. PROCEDURE: After informed consent was obtained, the patient, was brought into the endoscopy unit. IV sedation was administered by Anesthesia under continuous monitoring. Digital rectal examination was normal. Initially the Olympus CF-190 flexible video colonoscope was then inserted in the rectum, gradually advanced into the cecum without any difficulty. Careful examination was performed as the scope was gradually being withdrawn. Ileocecal valve and the appendiceal orifice were visualized and appeared normal. Prep was excellent. Mucosa of the cecum, ascending colon, transverse colon, descending colon, sigmoid colon, and rectum appeared normal. The terminal ileum was intubated and appeared normal. A diminutive 2 mm sigmoid polyp was removed with cold forcep polypectomy. Retroflexion was performed in the rectum and no lesions were seen. The patient tolerated the procedure well. IMPRESSION: Normal-appearing colon from rectum to cecum, and normal-appearing terminal ileum Diminutive sigmoid polyp removed with cold forceps. RECOMMENDATIONS: Findings of this examination were discussed with the patient and his family. Okay to resume diet. Okay to resume medication. Await pathology from polypect fabiola. Continue bowel regimen and dicyclomine as needed for abdominal pain as instructed in clinic. Follow up with GI as scheduled..
[2020-03-26 09:06] VITALS: BP 148/70; PULSE 58; RESP 20
== END 2020-03-26 09:08 | disposition home or self-care (01) ==
LOC: ORWHC2ENDO 07:15
PROVIDERS: ATTEND Internal Medicine
DX: K63.5 Polyp of colon (principal); I25.10 Atherosclerotic heart disease of native coronary artery without angina pectoris; I11.0 Hypertensive heart disease with heart failure; I50.9 Heart failure, unspecified; J44.9 Chronic obstructive pulmonary disease, unspecified; E11.9 Type 2 diabetes mellitus without complications; N28.9 Disorder of kidney and ureter, unspecified; F03.90 Unspecified dementia, unspecified severity, without behavioral disturbance, psychotic disturbance, mood disturbance, and anxiety; R11.2 Nausea with vomiting, unspecified; Z87.891 Personal history of nicotine dependence; Z79.899 Other long term (current) drug therapy; Z79.84 Long term (current) use of oral hypoglycemic drugs; Z79.82 Long term (current) use of aspirin; Z90.49 Acquired absence of other specified parts of digestive tract; Z98.890 Other specified postprocedural states; Z95.2 Presence of prosthetic heart valve; Z98.41 Cataract extraction status, right eye; Z98.42 Cataract extraction status, left eye; Z87.19 Personal history of other diseases of the digestive system; Z97.2 Presence of dental prosthetic device (complete) (partial)
CPT/HCPCS: 88305; 45380; J2704

== ENCOUNTER 2022-08-13 12:21 | Emergency (ER) | payer MEDICARE, OTHER ==
[2022-08-13 12:52] VITALS: TEMP 97
--- NOTE | 2022-08-13 13:38 | ED ---
GI Bleed HPI - General Source: patient, family, RN notes reviewed Mode of arrival: ambulatory Limitations: no limitations <Isaiah Orantes - Last Filed: 08/13/22 13:32> <Darshan Light - Last Filed: 08/13/22 18:22> - General Chief complaint: GI Bleed Stated complaint: rectal bleeding Time Seen by Provider: 08/13/22 13:25 - History of Present Illness Initial comments: This an 87-year-old male presents emergency Department with chief complaint rectal bleeding. Patient states he has severe headache yesterday states that he went to have a bowel movement and noticed some dark red blood within the stool. He does have a history of hemorrhoids but states she has no symptoms of this. He has no current headache, abdominal pain this time. He was concerned because he noticed the blood within the stool. He does take a baby aspirin but does not take any other blood thinners. Patient reports no fevers chills shortness of breath, chest pain or any lightheadedness. (Isaiah Orantes) - Related Data Home Medications Medication Instructions Recorded Confirmed Atorvastatin [Lipitor] 20 mg PO HS 01/22/14 08/13/22 Aspirin EC [Ecotrin Low Dose] 81 mg PO QAM 09/14/15 08/13/22 amLODIPine [Norvasc] 5 mg PO DAILY 09/14/15 08/13/22 carvediloL [Coreg] 12.5 mg PO DAILY 12/28/16 08/13/22 Cholecalciferol [Vitamin D3 (10 10 mcg PO DAILY 08/13/22 08/13/22 Mcg = 400 Iu)] guaiFENesin [Mucinex] 600 mg PO Q12H PRN 08/13/22 08/13/22 lisinopriL [Zestril] 5 mg PO DAILY 08/13/22 08/13/22 Allergies Allergy/AdvReac Type Severity Reaction Status Date / Time No Known Allergies Allergy Verified 03/26/20 07:45 Review of Systems ROS Other: All systems not noted in ROS Statement are negative. <Isaiah Orantes - Last Filed: 08/13/22 13:32> ROS Other: All systems not noted in ROS Statement are negative. <Darshan Light - Last Filed: 08/13/22 18:22> ROS Statement: Those systems with pertinent positive or pertinent negative responses have been documented in the HPI. Past Medical History Past Medical History: Coronary Artery Disease (CAD), Chest Pain / Angina, Heart Failure, Dementia, Diabetes Mellitus, Hyperlipidemia, Hypertension, Memory Impairment, Prostate Disorder Additional Past Medical History / Comment(s): NIDDM type II, neuropathy bilateral feet, nonischemic cardiomyopathy, BPH/PSA always high, frequent constipation, benign colon polyp, diverticular dx. History of Any Multi-Drug Resistant Organisms: None Reported Past Surgical History: Appendectomy, Cardiac Valve Replacement, Heart Catheterization, Hernia Repair Additional Past Surgical History / Comment(s): HEART CATH 07-02-14, Aortic valve replacement-bovine tissue valve 07/09/14, colonoscopy/benign polyp, hemorrhoidectomy, CATARACTS-[facility]. 2011, Past Anesthesia/Blood Transfusion Reactions: No Reported Reaction Past Psychological History: Depression Smoking Status: Former smoker - Past Family History Sister(s) Family Medical History: Cancer, Deep Vein Thrombosis (DVT) Additional Family Medical History / Comment(s): 2 SISTERS HAD DVT'S IN LEGS, ONE HAD OVARIAN CA Mother History Unknown: Yes Additional Family Medical History / Comment(s): Mother never discussed her h ealth. Father Additional Family Medical History / Comment(s): Father did not believe in going to the doctors. <Isaiah Orantes - Last Filed: 08/13/22 13:32> General Exam Limitations: no limitations <Isaiah Orantes - Last Filed: 08/13/22 13:32> Course Vital Signs 08/13/22 08/13/22 08/13/22 12:49 16:00 16:23 Temperature 97 F L Pulse Rate 60 68 59 L Respiratory 20 18 18 Rate Blood Pressure 190/93 227/99 233/91 O2 Sat by Pulse 97 96 97 Oximetry 08/13/22 08/13/22 08/13/22 16:36 17:21 17:31 Temperature Pulse Rate 62 74 65 Respiratory 18 18 18 Rate Blood Pressure 183/73 186/94 167/69 O2 Sat by Pulse 99 98 98 Oximetry 08/13/22 18:00 Temperature Pulse Rate 74 Respiratory 18 Rate Blood Pressure 155/85 O2 Sat by Pulse 99 Oximetry Medical Decision Making - Lab Data Result diagrams: 08/13/22 14:03 08/13/22 14:03 <Darshan Light - Last Filed: 08/13/22 18:22> - Medical Decision Making EKG was interpreted by me. EKG shows normal sinus rhythm at 61 bpm [place] interval 196 QRS is 156 QT intervals 454 QTC is 457. Patient's EKG shows left bundle branch block. Was pt. sent in by a medical professional or institution? @ -No Did you speak to anyone other than the patient for history? @ -Brother Did you review nursing and triage notes? @ -Agree with triage notes Were old charts reviewed? @ -No Differential Diagnosis? @ -Differential GI Bleed: Esophageal varices, aortoenteric fistula, Dagmar-Porter, gastritis, peptic ulcer disease, diverticulosis, inflammatory bowel disease, hemorrhoids, fissure, colitis, malignancy, Meckels diverticulum, this is not meant to be an all- inclusive list. EKG interpreted by me (3pts min.)? @ -As above X-rays interpreted by me (1pt min.)? @ -No CT interpreted by me (1pt min.)? @ -No U/S interpreted by me (1pt. min.)? @ -No What testing was considered but not performed? (CT, X-rays, U/S, labs)? Why? @ -No What meds were considered but not given? Why? @ -No Did you discuss the management of the patient with other professionals? @ -No Did you reconcile home meds? @ -No Was smoking cessation discussed for >3mins.? @ -no Was critical care preformed (if so, how long)? @ -No Were there social determinants of health that impacted care today? How? (Homelessness, low income, unemployed, alcoholism, drug addiction, transportation, low edu. Level, literacy, decrease access to med. care, alf, rehab)? @ -No Was there de-escalation of care discussed even if they declined? (Discuss DNR or withdrawal of care, Hospice)? @ -No What co-morbidities impacted this encounter? (DM, HTN, Smoking, COPD, CAD, Cancer, CVA, Hep., AIDS, mental health diagnosis, sleep apnea, morbid obesity)? @ -High blood pressure Was patient admitted / discharged? @ -Patient is being discharged home with high blood pressure and lower GI bleed. I recommended the patient stay but he absolutely refused to stay states he will start taking his medications on a regular basis and will follow-up with a GI bleed to get a colonoscopy potentially. Patient states he will return if he starts to get a headache or chest pain or difficulty breathing. Undiagnosed new problem with uncertain prognosis? @ -No Drug Therapy requiring intensive monitoring for toxicity (Heparin, Nitro, Insulin, Cardizem)? @ -No Were any procedures done? @ -No Diagnosis/symptom? @ -GI bleed Acute, or Chronic, or Acute on Chronic? @ -Acute Uncomplicated (without systemic symptoms) or Complicated (systemic symptoms)? @ -No Side effects of treatment? @ -No Exacerbation, Progression, or Severe Exacerbation] @ -No Poses a threat to life or bodily function? @ -No Diagnosis/symptom? @ -Hypertensive urgency Acute, or Chronic, or Acute on Chronic? @ -Acute on chronic Uncomplicated (without systemic symptoms) or Complicated (systemic symptoms)? @ -Uncomplicated Side effects of treatment? @ -No Exacerbation, Progression, or Severe Exacerbation] @ -No Poses a threat to life or bodily function? @ -No (Darshan Light) - Lab Data Lab Results 08/13/22 08/13/22 08/13/22 Range/Units 14:03 14:03 14:15 WBC 7.5 (3.8-10.6) k/uL RBC 4.88 (4.30-5.90) m/uL Hgb 15.1 (13.0-17.5) gm/dL Hct 42.3 (39.0-53.0) % MCV 86.8 (80.0-100.0) fL MCH 30.9 (25.0-35.0) pg MCHC 35.6 (31.0-37.0) g/dL RDW 13.4 (11.5-15.5) % Plt Count 156 (150-450) k/uL MPV 8.4 Neutrophils % 59 % Lymphocytes % 31 % Monocytes % 5 % Eosinophils % 2 % Basophils % 1 % Neutrophils # 4.5 (1.3-7.7) k/uL Lymphocytes # 2.3 (1.0-4.8) k/uL Monocytes # 0.3 (0-1.0) k/uL Eosinophils # 0.2 (0-0.7) k/uL Basophils # 0.1 (0-0.2) k/uL PT (9.0-12.0) sec INR (<1.2) APTT (22.0-30.0) sec Sodium 141 (137-145) mmol/L Potassium 4.1 (3.5-5.1) mmol/L Chloride 106 (98-107) mmol/L Carbon Dioxide 26 (22-30) mmol/L Anion Gap 9 mmol/L BUN 22 H (9-20) mg/dL Creatinine 1.07 (0.66-1.25) mg/dL Est GFR (CKD-EPI)AfAm 73 (>60 ml/min/1.73 sqM) Est GFR (CKD-EPI)NonAf 64 (>60 ml/min/1.73 sqM) Glucose 214 H (74-99) mg/dL Calcium 8.9 (8.4-10.2) mg/dL Magnesium 1.9 (1.6-2.3) mg/dL Total Bilirubin 1.3 (0.2-1.3) mg/dL AST 31 (17-59) U/L ALT 30 (4-49) U/L Alkaline Phosphatase 99 (38-126) U/L Total Protein 6.9 (6.3-8.2) g/dL Albumin 4.0 (3.5-5.0) g/dL Blood Type O Positive Blood Type Recheck O Pos Bld Type Recheck Status No Antibody Screen NEGATIVE Spec Expiration Date 08/16/2022231408/13/22 Range/Units 14:55 WBC (3.8-10.6) k/uL RBC (4.30-5.90) m/uL Hgb (13.0-17.5) gm/dL Hct (39.0-53.0) % MCV (80.0-100.0) fL MCH (25.0-35.0) pg MCHC (31.0-37.0) g/dL RDW (11.5-15.5) % Plt Count (150-450) k/uL MPV Neutrophils % % Lymphocytes % % Monocytes % % Eosinophils % % Basophils % % Neutrophils # (1.3-7.7) k/uL Lymphocytes # (1.0-4.8) k/uL Monocytes # (0-1.0) k/uL Eosinophils # (0-0.7) k/uL Basophils # (0-0.2) k/uL PT 10.1 (9.0-12.0) sec INR 0.9 (<1.2) APTT 22.1 (22.0-30.0) sec Sodium (137-145) mmol/L Potassium (3.5-5.1) mmol/L Chloride (98-107) mmol/L Carbon Dioxide (22-30) mmol/L Anion Gap mmol/L BUN (9-20) mg/dL Creatinine (0.66-1.25) mg/dL Est GFR (CKD-EPI)AfAm (>60 ml/min/1.73 sqM) Est GFR (CKD-EPI)NonAf (>60 ml/min/1.73 sqM) Glucose (74-99) mg/dL Calcium (8.4-10.2) mg/dL Magnesium (1.6-2.3) mg/dL Total Bilirubin (0.2-1.3) mg/dL AST (17-59) U/L ALT (4-49) U/L Alkaline Phosphatase (38-126) U/L Total Protein (6.3-8.2) g/dL Albumin (3.5-5.0) g/dL Blood Type Blood Type Recheck Bld Type Recheck Status Antibody Screen Spec Expiration Date Disposition <Isaiah Orantes - Last Filed: 08/13/22 13:32> Is patient prescribed a controlled substance at d/c from ED?: No Time of Disposition: 18:10 <Darshan Light - Last Filed: 08/13/22 18:22> Clinical Impression: Lower GI bleed, Hypertensive urgency Disposition: HOME SELF-CARE Condition: Good Instructions (If sedation given, give patient instructions): Gastrointestinal Bleeding (ED), Hypertension (ED) Additional Instructions: Patient is to follow-up with primary medical care doctor for the blood pressure and GI bleed. Patient is to start taking his blood pressure medications daily and monitoring his blood pressure Referrals: Luigi Roth MD [Primary Care Provider] - 1-2 days
[2022-08-13 14:15] LABS: Basophils # (A) 0.1 k/uL (0-0.2); Basophils % (A) 1 %; Eosinophils # (A) 0.2 k/uL (0-0.7); Eosinophils % (A) 2 %; HCT 42.3 % (39.0-53.0); HGB 15.1 gm/dL (13.0-17.5); Lymphocytes # (A) 2.3 k/uL (1.0-4.8); Lymphocytes % (A) 31 %; MCH 30.9 pg (25.0-35.0); MCHC 35.6 g/dL (31.0-37.0); MCV 86.8 fL (80.0-100.0); Mean Platelet Volume 8.4; Monocytes # (A) 0.3 k/uL (0-1.0); Monocytes % (A) 5 %; Neutrophils # (A) 4.5 k/uL (1.3-7.7); Neutrophils % (A) 59 %; Platelet Count 156 k/uL (150-450); RBC 4.88 m/uL (4.30-5.90); RDW 13.4 % (11.5-15.5); WBC 7.5 k/uL (3.8-10.6)
[2022-08-13 14:23] LABS: Calcium 8.9 mg/dL (8.4-10.2); Magnesium 1.9 mg/dL (1.6-2.3); Potassium 4.1 mmol/L (3.5-5.1); Total Bilirubin 1.3 mg/dL (0.2-1.3); Total Protein 6.9 g/dL (6.3-8.2)
[2022-08-13 15:19] LABS: INR 0.9 (<1.2); Partial Thromboplastin Time 22.1 sec (22.0-30.0); Prothrombin Time 10.1 sec (9.0-12.0)
[2022-08-13] MEDS ORDERED: hydrALAZINE HCL 20 MG/ML 1 ML VIAL IVP STA ×2 (15:44→16:51)
[2022-08-13 16:24] VITALS: RESP 18
[2022-08-13 18:06] VITALS: BP 155/85; PULSE 74
== END 2022-08-13 18:41 | disposition home or self-care (01) ==
LOC: EC 12:21
DX: K92.2 Gastrointestinal hemorrhage, unspecified (principal); I16.0 Hypertensive urgency; I11.0 Hypertensive heart disease with heart failure; I25.10 Atherosclerotic heart disease of native coronary artery without angina pectoris; E11.9 Type 2 diabetes mellitus without complications; I50.9 Heart failure, unspecified; E78.5 Hyperlipidemia, unspecified; F32.A Depression, unspecified; Z87.891 Personal history of nicotine dependence; Z79.82 Long term (current) use of aspirin; Z79.899 Other long term (current) drug therapy
CPT/HCPCS: 36415; 93005; 86900; 86901; 80053; 83735; 85025; 85610; 85730; 86850; 99285; 96374; 96376; J0360

== ENCOUNTER 2022-11-10 20:15 | Emergency (ER) | payer MEDICARE ==
[2022-11-10 20:18] LABS: Glucose,Whole Blood 203 mg/dL (70-110)
[2022-11-10 20:26] VITALS: TEMP 97.8
--- NOTE | 2022-11-10 22:03 | ED ---
General Adult HPI - General Chief complaint: Psychiatric Symptoms Stated complaint: Psych Time Seen by Provider: 11/10/22 20:29 Source: patient, family, EMS Mode of arrival: EMS - History of Present Illness Initial comments: This is an 87-year-old male with a past mental history including hypertension and diabetes presents emergency department via EMS after he made suicidal comm ents. The patient reportedly was an altercation with his brother and made a comment about committing suicide. On arrival, the patient was sitting in bed comfortably without any acute distress and stated that he was not suicidal at this time. The patient did admit however that when he gets into an altercation and gets "built-up and stressed," the patient does state that he makes statements regarding suicide. The patient stated that he would never do anything to harm himself but it was reported the patient is of access to guns. The patient's brother did witness this and was the reported legal guardian. The patient himself denied any other acute pain or complaints at this time. The patient denied any homicidal ideation, auditory or visual hallucinations. - Related Data Home Medications Medication Instructions Recorded Confirmed Atorvastatin [Lipitor] 20 mg PO HS 01/22/14 08/13/22 Aspirin EC [Ecotrin Low Dose] 81 mg PO QAM 09/14/15 08/13/22 amLODIPine [Norvasc] 5 mg PO DAILY 09/14/15 08/13/22 carvediloL [Coreg] 12.5 mg PO DAILY 12/28/16 08/13/22 Cholecalciferol [Vitamin D3 (10 10 mcg PO DAILY 08/13/22 08/13/22 Mcg = 400 Iu)] guaiFENesin [Mucinex] 600 mg PO Q12H PRN 08/13/22 08/13/22 lisinopriL [Zestril] 5 mg PO DAILY 08/13/22 08/13/22 Allergies Allergy/AdvReac Type Severity Reaction Status Date / Time No Known Allergies Allergy Verified 03/26/20 07:45 Review of Systems ROS Statement: Those systems with pertinent positive or pertinent negative responses have been documented in the HPI. ROS Other: All systems not noted in ROS Statement are negative. Past Medical History Past Medical History: Coronary Artery Disease (CAD), Chest Pain / Angina, Heart Failure, Dementia, Diabetes Mellitus, Hyperlipidemia, Hypertension, Memory Impairment, Prostate Disorder Additional Past Medical History / Comment(s): NIDDM type II, neuropathy bilateral feet, nonischemic cardiomyopathy, BPH/PSA always high, frequent constipation, benign colon polyp, diverticular dx. History of Any Multi-Drug Resistant Organisms: None Reported Past Surgical History: Appendectomy, Cardiac Valve Replacement, Heart Catheterization, Hernia Repair Additional Past Surgical History / Comment(s): HEART CATH 07-02-14, Aortic valve replacement-bovine tissue valve 07/09/14, colonoscopy/benign polyp, hemorrhoid ectomy, CATARACTS-[facility]. 2011, Past Anesthesia/Blood Transfusion Reactions: No Reported Reaction Past Psychological History: Depression Smoking Status: Former smoker Past Alcohol Use History: Daily Past Drug Use History: None Reported - Past Family History Sister(s) Family Medical History: Cancer, Deep Vein Thrombosis (DVT) Additional Family Medical History / Comment(s): 2 SISTERS HAD DVT'S IN LEGS, ONE HAD OVARIAN CA Mother History Unknown: Yes Additional Family Medical History / Comment(s): Mother never discussed her health. Father Additional Family Medical History / Comment(s): Father did not believe in going to the doctors. General Exam Limitations: no limitations General appearance: alert, in no apparent distress Head exam: Present: atraumatic, normocephalic, normal inspection Eye exam: Present: normal appearance, PERRL Pupils: Present: normal accommodation ENT exam: Present: normal exam, normal oropharynx, mucous membranes moist Neck exam: Present: normal inspection, full ROM Respiratory exam: Present: normal lung sounds bilaterally Cardiovascular Exam: Present: regular rate, normal rhythm, normal heart sounds GI/Abdominal exam: Present: soft, normal bowel sounds Extremities exam: Present: normal inspection, full ROM Back exam: Present: normal inspection, full ROM Neurological exam: Present: alert, oriented X3, CN II-XII intact Psychiatric exam: Present: normal affect, normal mood Skin exam: Present: warm, dry Course Vital Signs 11/10/22 11/11/22 11/11/22 20:16 03:29 08:31 Temperature 97.8 F Pulse Rate 90 73 70 Respiratory 18 16 18 Rate Blood Pressure 162/88 175/87 186/89 O2 Sat by Pulse 82 L 96 Oximetry Medical Decision Making - Medical Decision Making Was pt. sent in by a medical professional or institution (, PA, WHAT JOB TITLES MEAN, urgent care, hospital, or custodial...) When possible be specific @ -No Did you speak to anyone other than the patient for history (EMS, parent, family, police, friend...)? What history was obtained from this source @ -Yes, patient's brother's fiance Did you review nursing and triage notes (agree or disagree)? Why? @ -I reviewed and agree with nursing and triage notes Were old charts reviewed (outside hosp., previous admission, EMS record, old EKG, old radiological studies, urgent care reports/EKG's, custodial records)? Report findings @ -No old charts were reviewed Differential Diagnosis (chest pain, altered mental status, abdominal pain women, abdominal pain men, vaginal bleeding, weakness, fever, dyspnea, syncope, headache, dizziness, GI bleed, back pain, seizure, CVA, palpatations, mental health)? @ -Suicidal ideation, behavioral issue, progression EKG interpreted by me (3pts min.). @ -None X-rays interpreted by me (1pt min.). @ -None done CT interpreted by me (1pt min.). @ -None done U/S interpreted by me (1pt. min.). @ -None done What testing was considered but not performed or refused? (CT, X-rays, U/S, labs)? Why? @ -None What meds were considered but not given or refused? Why? @ -None Did you discuss the management of the patient with other professionals (professionals i.e. , PA, WHAT JOB TITLES MEAN, lab, RT, psych nurse, director social welfare, corporate intern, teacher, chief strategy officer, case management coordinator)? Give summary @ -No Was smoking cessation discussed for >3mins.? @ -No Was critical care preformed (if so, how long)? @ -No Were there social determinants of health that impacted care today? How? (Homelessness, low income, unemployed, alcoholism, drug addiction, transportation, low edu. Level, literacy, decrease access to med. care, half-way, rehab)? @ -No Was there de-escalation of care discussed even if they declined (Discuss DNR or withdrawal of care, Hospice)? DNR status @ -No What co-morbidities impacted this encounter? (DM, HTN, Smoking, COPD, CAD, Cancer, CVA, ARF, Chemo, Hep., AIDS, mental health diagnosis, sleep apnea, morbid obesity)? @ -Hypertension, diabetes Was patient admitted / discharged? Hospital course, mention meds given and route, prescriptions, significant lab abnormalities, going to OR and other pertinent info. @ -The patient was seen and evaluated emergency department. Physical exam, the patient was resting in bed without any acute distress. Vital signs admission were stable. The patient denied of any acute complaints at this time and did state that he was suicidal at the time of the argument but stated that he would "never do anything." The patient does have access to guns and the patient's brother who did have the patient sent in was the reported guardian. The patient was medically cleared at this time for EPS evaluation. The patient will be signed out to the oncoming physician pending EPS evaluation final disposition and management. Undiagnosed new problem with uncertain prognosis? @ -No Drug Therapy requiring intensive monitoring for toxicity (Heparin, Nitro, Insulin, Cardizem)? @ -No Were any procedures done? @ -No Diagnosis/symptom? @ -Suicidal ideation Acute, or Chronic, or Acute on Chronic? @ -Acute Uncomplicated (without systemic symptoms) or Complicated (systemic symptoms)? @ -Uncomplicated Side effects of treatment? @ -No Exacerbation, Progression, or Severe Exacerbation? @ -No Poses a threat to life or bodily function? How? (Chest pain, USA, ME, pneumonia, PE, COPD, DKA, ARF, appy, cholecystitis, CVA, Diverticulitis, Homicidal, Suicidal, threat to staff... and all critical care pts) @ -No 11/11/22 at 0504. Patient was seen by EPS and was deemed stable for discharge home. The patient had a safety plan created with EPS. The patient was discharged home under the care of a another physician. - Lab Data Lab Results 11/10/22 Range/Units 20:17 POC Glucose (mg/dL) 203 H (70-110) mg/dL POC Glu Practice Consultant ID Susan Gomes Disposition Clinical Impression: Suicidal ideation Disposition: HOME SELF-CARE Instructions (If sedation given, give patient instructions): Help Prevent Suicide in Older Adults (ED) Is patient prescribed a controlled substance at d/c from ED?: No Referrals: Nonstaff,Physician [Primary Care Provider] - 1-2 days Forms: Outpatient Counseling Time of Disposition: 05:04 (11/11/22)
[2022-11-11 08:34] VITALS: BP 186/89; PULSE 70; RESP 18
== END 2022-11-11 10:50 | disposition home or self-care (01) ==
LOC: EC 20:15
DX: R45.851 Suicidal ideations (principal); E11.40 Type 2 diabetes mellitus with diabetic neuropathy, unspecified; I11.0 Hypertensive heart disease with heart failure; I50.9 Heart failure, unspecified; I25.10 Atherosclerotic heart disease of native coronary artery without angina pectoris; E78.5 Hyperlipidemia, unspecified; F03.90 Unspecified dementia, unspecified severity, without behavioral disturbance, psychotic disturbance, mood disturbance, and anxiety; F32.A Depression, unspecified; Z87.891 Personal history of nicotine dependence; Z79.82 Long term (current) use of aspirin; Z79.899 Other long term (current) drug therapy
CPT/HCPCS: 36415; 82075; 99285

== ENCOUNTER 2023-02-07 08:22 | Emergency (ER) | payer MEDICARE ==
[2023-02-07 08:34] VITALS: RESP 18
--- NOTE | 2023-02-07 09:13 | ED ---
Lower Extremity Injury HPI - General Chief Complaint: Extremity Injury, Lower Stated Complaint: Leg swelling Time Seen by Provider: 02/07/23 08:36 Source: patient, RN notes reviewed Mode of arrival: ambulatory Limitations: no limitations - History of Present Illness Initial Comments: 87-year-old male presents emergency Department with chief complaint of leg swelling. Patient states he has chronic leg swelling and congestive heart failure. Patient does take diuretics. Patient noticed that he developed a blister on his right lower leg and ruptured and has been having some drainage. Patient concern as is the worst. Patient does have shortness breath but is more chronic in nature denies any significant change or significant orthopnea. Patient denies fevers or chills patient is followed by cardiology at [facility] - Related Data Home Medications Medication Instructions Recorded Confirmed Atorvastatin [Lipitor] 20 mg PO HS 01/22/14 08/13/22 Aspirin EC [Ecotrin Low Dose] 81 mg PO QAM 09/14/15 08/13/22 amLODIPine [Norvasc] 5 mg PO DAILY 09/14/15 08/13/22 carvediloL [Coreg] 12.5 mg PO DAILY 12/28/16 08/13/22 Cholecalciferol [Vitamin D3 (10 10 mcg PO DAILY 08/13/22 08/13/22 Mcg = 400 Iu)] guaiFENesin [Mucinex] 600 mg PO Q12H PRN 08/13/22 08/13/22 lisinopriL [Zestril] 5 mg PO DAILY 08/13/22 08/13/22 Previous Rx's Medication Instructions Recorded Cephalexin [Keflex] 500 mg PO Q6HR #40 cap 02/07/23 Furosemide [Lasix] 20 mg PO DAILY #5 tab 02/07/23 Allergies Allergy/AdvReac Type Severity Reaction Status Date / Time No Known Allergies Allergy Verified 02/07/23 08:34 Review of Systems ROS Statement: Those systems with pertinent positive or pertinent negative responses have been documented in the HPI. ROS Other: All systems not noted in ROS Statement are negative. Past Medical History Past Medical History: Coronary Artery Disease (CAD), Chest Pain / Angina, Heart Failure, Dementia, Diabetes Mellitus, Hyperlipidemia, Hypertension, Memory Impairment, Prostate Disorder Additional Past Medical History / Comment(s): NIDDM type II, neuropathy bilateral feet, nonischemic cardiomyopathy, BPH/PSA always high, frequent constipation, benign colon polyp, diverticular dx. History of Any Multi-Drug Resistant Organisms: None Reported Past Surgical History: Appendectomy, Cardiac Valve Replacement, Heart Catheterization, Hernia Repair Additional Past Surgical History / Comment(s): HEART CATH 07-02-14, Aortic valve replacement-bovine tissue valve 07/09/14, colonoscopy/benign polyp, hemorrhoidectomy, CATARACTS-[facility]. 2011, Past Anesthesia/Blood Transfusion Reactions: No Reported Reaction Past Psychological History: Depression Smoking Status: Former smoker Past Alcohol Use History: Occasional Past Drug Use History: None Reported - Past Family History Sister(s) Family Medical History: Cancer, Deep Vein Thrombosis (DVT) Additional Family Medical History / Comment(s): 2 SISTERS HAD DVT'S IN LEGS, ONE HAD OVARIAN CA Mother History Unknown: Yes Additional Family Medical History / Comment(s): Mother never discussed her health. Father Additional Family Medical History / Comment(s): Father did not believe in going to the doctors. General Exam Limitations: no limitations General appearance: alert, in no apparent distress Head exam: Present: atraumatic, normocephalic, normal inspection Respiratory exam: Present: normal lung sounds bilaterally. Absent: respiratory distress, wheezes, rales, rhonchi, stridor Cardiovascular Exam: Present: regular rate, normal rhythm, systolic murmur. Absent: normal heart sounds, diastolic murmur, rubs, gallop, clicks GI/Abdominal exam: Present: soft, normal bowel sounds. Absent: distended, tenderness, guarding, rebound, rigid Extremities exam: Present: pedal edema (Bilateral edema, there is an open sore right medial leg approximately 3 cm) Course Vital Signs 02/07/23 02/07/23 08:28 09:51 Temperature 98.1 F 97.8 F Pulse Rate 65 60 Respiratory 18 18 Rate Blood Pressure 162/69 172/67 O2 Sat by Pulse 97 96 Oximetry Medical Decision Making - Medical Decision Making Was pt. sent in by a medical professional or institution (, PA, CRATE REPAIRER, urgent care, hospital, or skilled nursing...) When possible be specific @ -No Did you speak to anyone other than the patient for history (EMS, parent, family, police, friend...)? What history was obtained from this source @ -No Did you review nursing and triage notes (agree or disagree)? Why? @ -I reviewed and agree with nursing and triage notes Were old charts reviewed (outside hosp., previous admission, EMS record, old EKG, old radiological studies, urgent care reports/EKG's, skilled nursing records)? Report findings @ -Reviewed prior laboratory studies, echocardiogram and EKG Differential Diagnosis (chest pain, altered mental status, abdominal pain women, abdominal pain men, vaginal bleeding, weakness, fever, dyspnea, syncope, headache, dizziness, GI bleed, back pain, seizure, CVA, palpatations, mental health, musculoskeletal)? @ -CHF, renal failure, ascites, leg edema, EKG interpreted by me (3pts min.). @ -As above X-rays interpreted by me (1pt min.). @ -Chest x-ray shows no evidence of pulmonary edema CT interpreted by me (1pt min.). @ -None done U/S interpreted by me (1pt. min.). @ -None done What testing was considered but not performed or refused? (CT, X-rays, U/S, labs)? Why? @ -None What meds were considered but not given or refused? Why? @ -None Did you discuss the management of the patient with other professionals (professionals i.e. , PA, CRATE REPAIRER, lab, RT, psych nurse, social sciences department chair, criminal defense lawyer, teacher, real estate loan officer, gearcase assembler)? Give summary @ -No Was smoking cessation discussed for >3mins.? @ -No Was critical care preformed (if so, how long)? @ -No Were there social determinants of health that impacted care today? How? (Homelessness, low income, unemployed, alcoholism, drug addiction, transportation, low edu. Level, literacy, decrease access to med. care, nursing home, rehab)? @ -No Was there de-escalation of care discussed even if they declined (Discuss DNR or withdrawal of care, Hospice)? DNR status @ -No What co-morbidities impacted this encounter? (DM, HTN, Smoking, COPD, CAD, Cancer, CVA, ARF, Chemo, Hep., AIDS, mental health diagnosis, sleep apnea, morbid obesity)? @ -Hypertension, CHF, CAD Was patient admitted / discharged? Hospital course, mention meds given and route, prescriptions, significant lab abnormalities, going to OR and other pertinent info. @ -Discharge patient has mild leg edema with no overt signs of failure patient we given Lasix for 5 days patient does have an open wound in which she was placed on oral antibiotics . Return parameters were discussed. Undiagnosed new problem with uncertain prognosis? @ -No Drug Therapy requiring intensive monitoring for toxicity (Heparin, Nitro, Insulin, Cardizem)? @ -No Were any procedures done? @ -No Diagnosis/symptom? @ -Leg edema, leg wound Acute, or Chronic, or Acute on Chronic? @ -Acute Uncomplicated (without systemic symptoms) or Complicated (systemic symptoms)? @ -[Complicated Side effects of treatment? @ -No Exacerbation, Progression, or Severe Exacerbation? @ -No Poses a threat to life or bodily function? How? (Chest pain, USA, ME, pneumonia, PE, COPD, DKA, ARF, appy, cholecystitis, CVA, Diverticulitis, Homicidal, Suicidal, threat to staff... and all critical care pts) @ -No - Lab Data Result diagrams: 02/07/23 09:02 02/07/23 09:02 Lab Results 02/07/23 02/07/23 Range/Units 09:02 09:02 WBC 5.7 (3.8-10.6) k/uL RBC 4.14 L (4.30-5.90) m/uL Hgb 12.5 L (13.0-17.5) gm/dL Hct 37.2 L (39.0-53.0) % MCV 89.9 (80.0-100.0) fL MCH 30.3 (25.0-35.0) pg MCHC 33.8 (31.0-37.0) g/dL RDW 12.7 (11.5-15.5) % Plt Count 157 (150-450) k/uL MPV 8.2 Neutrophils % 52 % Lymphocytes % 35 % Monocytes % 7 % Eosinophils % 3 % Basophils % 1 % Neutrophils # 2.9 (1.3-7.7) k/uL Lymphocytes # 2.0 (1.0-4.8) k/uL Monocytes # 0.4 (0-1.0) k/uL Eosinophils # 0.1 (0-0.7) k/uL Basophils # 0.1 (0-0.2) k/uL Sodium 137 (137-145) mmol/L Potassium 4.9 (3.5-5.1) mmol/L Chloride 107 (98-107) mmol/L Carbon Dioxide 24 (22-30) mmol/L Anion Gap 6 mmol/L BUN 33 H (9-20) mg/dL Creatinine 1.28 H (0.66-1.25) mg/dL Est GFR (CKD-EPI)AfAm 59 (>60 ml/min/1.73 sqM) Est GFR (CKD-EPI)NonAf 51 (>60 ml/min/1.73 sqM) Glucose 177 H (74-99) mg/dL Calcium 8.8 (8.4-10.2) mg/dL Magnesium 1.8 (1.6-2.3) mg/dL Total Bilirubin 0.7 (0.2-1.3) mg/dL AST 44 (17-59) U/L ALT 27 (4-49) U/L Alkaline Phosphatase 103 (38-126) U/L NT-Pro-B Natriuret Pep 1580 pg/mL Total Protein 6.6 (6.3-8.2) g/dL Albumin 3.8 (3.5-5.0) g/dL Disposition Clinical Impression: Leg edema, Leg wound, right, Cellulitis Disposition: HOME SELF-CARE Condition: Stable Instructions (If sedation given, give patient instructions): Leg Edema (ED) Additional Instructions: Please return to the Emergency Department if symptoms worsen or any other concerns. Prescriptions: Cephalexin [Keflex] 500 mg PO Q6HR #40 cap Furosemide [Lasix] 20 mg PO DAILY #5 tab Is patient prescribed a controlled substance at d/c from ED?: No Referrals: Luigi Roth MD [Primary Care Provider] - 1-2 days Time of Disposition: 10:00
[2023-02-07 09:19] LABS: Basophils # (A) 0.1 k/uL (0-0.2); Basophils % (A) 1 %; Eosinophils # (A) 0.1 k/uL (0-0.7); Eosinophils % (A) 3 %; HCT 37.2 % (39.0-53.0); HGB 12.5 gm/dL (13.0-17.5); Lymphocytes % (A) 35 %; MCH 30.3 pg (25.0-35.0); MCHC 33.8 g/dL (31.0-37.0); MCV 89.9 fL (80.0-100.0); Mean Platelet Volume 8.2; Monocytes # (A) 0.4 k/uL (0-1.0); Monocytes % (A) 7 %; Neutrophils # (A) 2.9 k/uL (1.3-7.7); Neutrophils % (A) 52 %; Platelet Count 157 k/uL (150-450); RBC 4.14 m/uL (4.30-5.90); RDW 12.7 % (11.5-15.5); WBC 5.7 k/uL (3.8-10.6)
[2023-02-07 09:26] LABS: ALT 27 U/L (4-49); African American GFR (CKD) 59 (>60 ml/min/1.73 sqM); Albumin 3.8 g/dL (3.5-5.0); Anion Gap 6 mmol/L; Blood Urea Nitrogen 33 mg/dL (9-20); Calcium 8.8 mg/dL (8.4-10.2); Carbon Dioxide 24 mmol/L (22-30); Chloride 107 mmol/L (98-107); Glucose 177 mg/dL (74-99); Non-African American GFR(CKD) 51 (>60 ml/min/1.73 sqM); Sodium 137 mmol/L (137-145); Total Bilirubin 0.7 mg/dL (0.2-1.3); Total Protein 6.6 g/dL (6.3-8.2)
[2023-02-07 09:35] LABS: NT-Pro-B-Type Natriuretic Pept 1580 pg/mL
[2023-02-07 09:40] LABS: AST 44 U/L (17-59); Alkaline Phosphatase 103 U/L (38-126); Magnesium 1.8 mg/dL (1.6-2.3); Potassium 4.9 mmol/L (3.5-5.1)
--- NOTE | 2023-02-07 09:41 | XR ---
EXAMINATION TYPE: XR chest 2V DATE OF EXAM: 02/07/2023 COMPARISON: 03/07/2020 HISTORY: Shortness of breath TECHNIQUE: Frontal and lateral views of the chest are obtained. FINDINGS: Scattered senescent parenchymal changes noted. Hyperinflation compatible with COPD. No evidence for infiltrate. No evidence for atelectasis. Heart size is enlarged without evidence for congestive failure. Sternotomy wires are in place. Mediastinal structures are stable and grossly unremarkable. No evidence for hilar prominence. Degenerative changes dorsal spine. IMPRESSION: 1. No evidence for acute pulmonary disease.
[2023-02-07 09:53] VITALS: BP 172/67; PULSE 60; TEMP 97.8
[2023-02-07] MEDS ORDERED: BACITRACIN OINT 1 EACH PACKET TOPICAL ONE (10:10)
== END 2023-02-07 10:24 | disposition home or self-care (01) ==
LOC: EC 08:22
DX: S81.801A Unspecified open wound, right lower leg, initial encounter (principal); I11.0 Hypertensive heart disease with heart failure; I25.10 Atherosclerotic heart disease of native coronary artery without angina pectoris; I50.9 Heart failure, unspecified; E11.9 Type 2 diabetes mellitus without complications; E78.5 Hyperlipidemia, unspecified; F32.A Depression, unspecified; Z79.82 Long term (current) use of aspirin; Z79.899 Other long term (current) drug therapy; Z87.891 Personal history of nicotine dependence; X58.XXXA Exposure to other specified factors, initial encounter
CPT/HCPCS: 36415; 71046; 80053; 83735; 83880; 85025; 93005; 99284

== ENCOUNTER 2023-02-18 19:53 | Emergency (ER) | payer MEDICARE ==
[2023-02-18 19:59] VITALS: BP 184/77; PULSE 77; RESP 18; TEMP 97.8
--- NOTE | 2023-02-18 20:31 | ED ---
General Adult HPI - General Source: patient, family Mode of arrival: ambulatory Limitations: no limitations <Hiren Tolentino - Last Filed: 02/18/23 20:31> <Damian Armstrong - Last Filed: 02/19/23 00:49> - General Chief complaint: Skin/Abscess/Foreign Body Stated complaint: Diabetic Sore on Leg - History of Present Illness Initial comments: a 87-year-old malewith past medical history significant for type 2 diabetes presents to ER with a chief complaint of nonhealing wound to his right lower leg. Denies fever (Hiren Tolentino) 87-year-old male presenting with chief complaint of wound to the right lower leg. He states that wound is been present for several weeks. He was seen here 2 weeks ago and started on Keflex, he was also given Lasix for his lower extremity edema. They state that the wound has continued to worsen. History of diabetes and CHF. No fevers or chills. No nausea or vomiting. Patient states that he often has weeping from the wound. (Damian Armstrong) - Related Data Home Medications Medication Instructions Recorded Confirmed Atorvastatin [Lipitor] 20 mg PO HS 01/22/14 08/13/22 Aspirin EC [Ecotrin Low Dose] 81 mg PO QAM 09/14/15 08/13/22 amLODIPine [Norvasc] 5 mg PO DAILY 09/14/15 08/13/22 carvediloL [Coreg] 12.5 mg PO DAILY 12/28/16 08/13/22 Cholecalciferol [Vitamin D3 (10 10 mcg PO DAILY 08/13/22 08/13/22 Mcg = 400 Iu)] guaiFENesin [Mucinex] 600 mg PO Q12H PRN 08/13/22 08/13/22 lisinopriL [Zestril] 5 mg PO DAILY 08/13/22 08/13/22 Previous Rx's Medication Instructions Recorded Cephalexin [Keflex] 500 mg PO Q6HR #40 cap 02/07/23 Furosemide [Lasix] 20 mg PO DAILY #5 tab 02/07/23 Allergies Allergy/AdvReac Type Severity Reaction Status Date / Time No Known Allergies Allergy Verified 02/18/23 19:59 Review of Systems ROS Other: All systems not noted in ROS Statement are negative. <Hiren Tolentino - Last Filed: 02/18/23 20:31> ROS Other: All systems not noted in ROS Statement are negative. <Damian Armstrong - Last Filed: 02/19/23 00:49> ROS Statement: Those systems with pertinent positive or pertinent negative responses have been documented in the HPI. Past Medical History Past Medical History: Coronary Artery Disease (CAD), Chest Pain / Angina, Heart Failure, Dementia, Diabetes Mellitus, Hyperlipidemia, Hypertension, Memory Impairment, Prostate Disorder Additional Past Medical History / Comment(s): NIDDM type II, neuropathy b ilateral feet, nonischemic cardiomyopathy, BPH/PSA always high, frequent constipation, benign colon polyp, diverticular dx. History of Any Multi-Drug Resistant Organisms: None Reported Past Surgical History: Appendectomy, Cardiac Valve Replacement, Heart Catheterization, Hernia Repair Additional Past Surgical History / Comment(s): HEART CATH 07-02-14, Aortic valve replacement-bovine tissue valve 07/09/14, colonoscopy/benign polyp, hemorrhoidectomy, CATARACTS-WENDY. 2011, Past Anesthesia/Blood Transfusion Reactions: No Reported Reaction Past Psychological History: Depression Smoking Status: Former smoker Past Alcohol Use History: Occasional Past Drug Use History: None Reported - Past Family History Sister(s) Family Medical History: Cancer, Deep Vein Thrombosis (DVT) Additional Family Medical History / Comment(s): 2 SISTERS HAD DVT'S IN LEGS, ONE HAD OVARIAN CA Mother History Unknown: Yes Additional Family Medical History / Comment(s): Mother never discussed her health. Father Additional Family Medical History / Comment(s): Father did not believe in going to the doctors. <Hiren Tolentino - Last Filed: 02/18/23 20:31> General Exam Limitations: no limitations, language barrier (Hard of hearing) General appearance: alert, in no apparent distress Extremities exam: Present: other (Ambulates without difficulty) <Hiren Tolentino - Last Filed: 02/18/23 20:31> Limitations: no limitations General appearance: alert, in no apparent distress Head exam: Present: atraumatic, normocephalic, normal inspection Eye exam: Present: normal appearance Neck exam: Present: normal inspection, full ROM Respiratory exam: Present: normal lung sounds bilaterally. Absent: respiratory distress, wheezes, rales, rhonchi, stridor Cardiovascular Exam: Present: regular rate, normal rhythm, normal heart sounds. Absent: systolic murmur, diastolic murmur, rubs, gallop, clicks Extremities exam: Present: pedal edema Neurological exam: Present: alert, oriented X3, CN II-XII intact Psychiatric exam: Present: normal affect, normal mood Skin exam: Present: other (Ulceration to the right lower leg) <Damian Armstrong - Last Filed: 02/19/23 00:49> Course Vital Signs 02/18/23 19:56 Temperature 97.8 F Pulse Rate 77 Respiratory 18 Rate Blood Pressure 184/77 O2 Sat by Pulse 96 Oximetry Medical Decision Making <Damian Armstrong - Last Filed: 02/19/23 00:49> - Medical Decision Making Was pt. sent in by a medical professional or institution (, PA, RAG CUTTING MACHINE OPERATOR, urgent care, hospital, or penitentiary...) When possible be specific @ -No Did you speak to anyone other than the patient for history (EMS, parent, family, police, friend...)? What history was obtained from this source @ -No Did you review nursing and triage notes (agree or disagree)? Why? @ -I reviewed and agree with nursing and triage notes Were old charts reviewed (outside hosp., previous admission, EMS record, old EKG, old radiological studies, urgent care reports/EKG's, penitentiary records)? Report findings @ -No old charts were reviewed Differential Diagnosis (chest pain, altered mental status, abdominal pain women, abdominal pain men, vaginal bleeding, weakness, fever, dyspnea, syncope, headache, dizziness, GI bleed, back pain, seizure, CVA, palpatations, mental health, musculoskeletal)? @ -Differential includes cellulitis, osteomyelitis, diabetic ulcer, this is not an all inclusive list EKG interpreted by me (3pts min.). @ -As above X-rays interpreted by me (1pt min.). @ -None done CT interpreted by me (1pt min.). @ -None done U/S interpreted by me (1pt. min.). @ -None done What testing was considered but not performed or refused? (CT, X-rays, U/S, labs)? Why? @ -Lab work including CBC and BNP as well as chest x-ray were considered, however the patient refused and left AGAINST MEDICAL ADVICE What meds were considered but not given or refused? Why? @ -None Did you discuss the management of the patient with other professionals (professionals i.e. DrJenni, PA, RAG CUTTING MACHINE OPERATOR, lab, RT, psych nurse, social service technician, social worker aide, teacher, loan officer, case making machine operator)? Give summary @ -No Was smoking cessation discussed for >3mins.? @ -No Was critical care preformed (if so, how long)? @ -No Were there social determinants of health that impacted care today? How? (Homelessness, low income, unemployed, alcoholism, drug addiction, transportation, low edu. Level, literacy, decrease access to med. care, custodial, rehab)? @ -No Was there de-escalation of care discussed even if they declined (Discuss DNR or withdrawal of care, Hospice)? DNR status @ -No What co-morbidities impacted this encounter? (DM, HTN, Smoking, COPD, CAD, Cancer, CVA, ARF, Chemo, Hep., AIDS, mental health diagnosis, sleep apnea, morbid obesity)? @ -Diabetes, CHF Was patient admitted / discharged? Hospital course, mention meds given and route, prescriptions, significant lab abnormalities, going to OR and other pertinent info. @ -87-year-old male presenting with chief complaint of wound to the right lower leg. Previously treated with Keflex but seems to be getting worse. There is notable lower extremity edema and ulceration is noted. Lab work including CBC, CMP, and BNP are ordered as well as chest x-ray wound culture. I'm told the patient refused all testing in then left AGAINST MEDICAL ADVICE. He is of sound mind and body and able to make his own decisions. He should follow-up with his PCP and report back to ER with any new or worsening symptoms. My attending is Dr. Clarke Undiagnosed new problem with uncertain prognosis? @ -No Drug Therapy requiring intensive monitoring for toxicity (Heparin, Nitro, Insulin, Cardizem)? @ -No Were any procedures done? @ -No Diagnosis/symptom? @ -Cellulitis, edema Acute, or Chronic, or Acute on Chronic? @ -Acute Uncomplicated (without systemic symptoms) or Complicated (systemic symptoms)? @ -undetermined Side effects of treatment? @ -No Exacerbation, Progression, or Severe Exacerbation? @ -No Poses a threat to life or bodily function? How? (Chest pain, [place], ME, pneumonia, PE, COPD, DKA, ARF, appy, cholecystitis, CVA, Diverticulitis, Homicidal, Suicidal, threat to staff... and all critical care pts) @ -potentially (Damian Armstrong) Disposition <Hiren Tolentino - Last Filed: 02/18/23 20:31> Time of Disposition: 23:48 <Damian Armstrong - Last Filed: 02/19/23 00:49> Clinical Impression: Cellulitis Disposition: LEFT AGAINST MEDICAL ADVICE Condition: Undetermined Referrals: Luigi Roth MD [Primary Care Provider] - 1-2 days
== END 2023-02-18 23:54 | disposition left against medical advice (07) ==
LOC: EC 19:53
DX: L03.115 Cellulitis of right lower limb (principal); E11.622 Type 2 diabetes mellitus with other skin ulcer; L97.919 Non-pressure chronic ulcer of unspecified part of right lower leg with unspecified severity; B96.89 Other specified bacterial agents as the cause of diseases classified elsewhere; E11.40 Type 2 diabetes mellitus with diabetic neuropathy, unspecified; I11.0 Hypertensive heart disease with heart failure; I50.9 Heart failure, unspecified; I25.10 Atherosclerotic heart disease of native coronary artery without angina pectoris; E78.5 Hyperlipidemia, unspecified; Z53.29 Procedure and treatment not carried out because of patient's decision for other reasons; Z79.82 Long term (current) use of aspirin; Z79.899 Other long term (current) drug therapy; Z87.891 Personal history of nicotine dependence
CPT/HCPCS: 87070; 87205; 99282

== ENCOUNTER 2023-11-18 09:26 | Emergency (ER) | payer MEDICARE ==
[2023-11-18 09:39] VITALS: TEMP 98.5
[2023-11-18] MEDS: BENZONATATE 100 MG CAP PO STA (09:52)
--- NOTE | 2023-11-18 09:57 | ED ---
URI HPI - General Chief Complaint: Upper Respiratory Infection Stated Complaint: cough Time Seen by Provider: 11/18/23 09:37 Source: patient, RN notes reviewed Mode of arrival: ambulatory Limitations: no limitations - History of Present Illness Initial Comments: This is an 88-year-old male who presents to the emergency department for coughing and congestion. Symptoms started 3 to 4 days ago. Denies any chest pain or shortness of breath. States that the cough is productive and he has noticed a lot of clear drainage. He has been around sick contacts in his house. Denies any fever/chills. Also denies a hx of COPD or asthma. - Related Data Home Medications Medication Instructions Recorded Confirmed RX: Atorvastatin [Lipitor] 20 mg PO HS 01/22/14 08/13/22 RX: Aspirin EC [Ecotrin Low Dose] 81 mg PO QAM 09/14/15 08/13/22 RX: amLODIPine [Norvasc] 5 mg PO DAILY 09/14/15 08/13/22 RX: carvediloL [Coreg] 12.5 mg PO DAILY 12/28/16 08/13/22 Cholecalciferol [Vitamin D3 (10 10 mcg PO DAILY 08/13/22 08/13/22 Mcg = 400 Iu)] RX: lisinopriL [Zestril] 5 mg PO DAILY 08/13/22 08/13/22 guaiFENesin [Mucinex] 600 mg PO Q12H PRN 08/13/22 08/13/22 Previous Rx's Medication Instructions Recorded Cephalexin [Keflex] 500 mg PO Q6HR #40 cap 02/07/23 Furosemide [Lasix] 20 mg PO DAILY #5 tab 02/07/23 Benzonatate [Tessalon Perle] 200 mg PO TID PRN #30 capsule 11/18/23 Allergies Allergy/AdvReac Type Severity Reaction Status Date / Time No Known Allergies Allergy Verified 11/18/23 09:36 Review of Systems ROS Statement: Those systems with pertinent positive or pertinent negative responses have been documented in the HPI. ROS Other: All systems not noted in ROS Statement are negative. Past Medical History Past Medical History: Coronary Artery Disease (CAD), Chest Pain / Angina, Heart Failure, Dementia, Diabetes Mellitus, Hyperlipidemia, Hypertension, Memory Impairment, Prostate Disorder Additional Past Medical History / Comment(s): NIDDM type II, neuropathy bilateral feet, nonischemic cardiomyopathy, BPH/PSA always high, frequent constipation, benign colon polyp, diverticular dx. History of Any Multi-Drug Resistant Organisms: None Reported Past Surgical History: Appendectomy, Cardiac Valve Replacement, Heart Catheterization, Hernia Repair Additional Past Surgical History / Comment(s): HEART CATH 07-02-14, Aortic valve replacement-bovine tissue valve 07/09/14, colonoscopy/benign polyp, hemorrhoidectomy, CATARACTS-[facility]. 2011, Past Anesthesia/Blood Transfusion Reactions: No Reported Reaction Past Psychological History: Depression Smoking Status: Former smoker Past Alcohol Use History: Occasional Past Drug Use History: None Reported - Past Family History Sister(s) Family Medical History: Cancer, Deep Vein Thrombosis (DVT) Additional Family Medical History / Comment(s): 2 SISTERS HAD DVT'S IN LEGS, ONE HAD OVARIAN CA Mother History Unknown: Yes Additional Family Medical History / Comment(s): Mother never discussed her health. Father Additional Family Medical History / Comment(s): Father did not believe in going to the doctors. General Exam Limitations: no limitations General appearance: alert, in no apparent distress Head exam: Present: atraumatic, normocephalic, normal inspection Respiratory exam: Present: normal lung sounds bilaterally. Absent: respiratory distress, wheezes, rales, rhonchi, stridor Cardiovascular Exam: Present: regular rate, normal rhythm, normal heart sounds. Absent: systolic murmur, diastolic murmur, rubs, gallop, clicks Neurological exam: Present: alert, oriented X3, CN II-XII intact Psychiatric exam: Present: normal affect, normal mood Skin exam: Present: warm, dry, intact, normal color. Absent: rash Course Vital Signs 11/18/23 11/18/23 09:33 11:54 Temperature 98.5 F Pulse Rate 62 68 Respiratory 18 20 Rate Blood Pressure 152/66 139/69 O2 Sat by Pulse 94 L Oximetry Medical Decision Making - Medical Decision Making This is an 88 year old male who presents to the emergency department for coughing and congestion. Was pt. sent in by a medical professional or institution? @ -No Did you speak to anyone other than the patient for history? @ -No Did you review nursing and triage notes? @ -Yes, and I agree, it is accurate with regards to the patient's symptoms. Were old charts reviewed? @ -No Differential Diagnosis? @ -Differential Cough: Influenza, Covid, RSV, croup, allergic rhinitis, GERD, pneumonia, bronchitis, COPD, viral pharyngitis, streptococcal pharyngitis, this is not meant to be an all-inclusive list. EKG interpreted by me (3pts min.)? @ -Not obtained X-rays interpreted by me (1pt min.)? @ -Chest x-ray obtained, my interpretation identifies no localized consolidations or infiltrates. CT interpreted by me (1pt min.)? @ -Not obtained U/S interpreted by me (1pt. min.)? @ -Not obtained What testing was considered but not performed? (CT, X-rays, U/S, labs)? Why? @ -None What meds were considered but not given? Why? @ -None Did you discuss the management of the patient with other professionals? @ -No Did you reconcile home meds? @ -No Was smoking cessation discussed for >3mins.? @ -No Was critical care preformed (if so, how long)? @ -No Were there social determinants of health that impacted care today? How? (Homelessness, low income, unemployed, alcoholism, drug addiction, transportation, low edu. Level, literacy, decrease access to med. care, alf, rehab)? @ -No Was there de-escalation of care discussed even if they declined? (Discuss DNR or withdrawal of care, Hospice)? @ -No What co-morbidities impacted this encounter? (DM, HTN, Smoking, COPD, CAD, Cancer, CVA, Hep., AIDS, mental health diagnosis, sleep apnea, morbid obesity)? @ -CAD, DM, HLD, HTN Was patient admitted / discharged? @ -Discharged. COVID, influenza, and RSV testing were negative. Chest x-ray reveals no acute process. Tessalon Perles administered with improvement in symptoms. Patient was ambulating to the restroom without difficulty and not exhibiting any chest pain or shortness of breath either at rest or with exertion. Advised that symptoms are likely viral in nature. Prescription for Tessalon Perles provided with dosing instructions reviewed. Otherwise advised follow-up with his primary care provider. Undiagnosed new problem with uncertain prognosis? @ -None Drug Therapy requiring intensive monitoring for toxicity (Heparin, Nitro, Insulin, Cardizem)? @ -None Were any procedures done? @ -None Diagnosis/symptom? @ -URI Acute, or Chronic, or Acute on Chronic? @ -Acute Uncomplicated (without systemic symptoms) or Complicated (systemic symptoms)? @ -Uncomplicated Side effects of treatment? @ -None Exacerbation, Progression, or Severe Exacerbation] @ -Not applicable Poses a threat to life or bodily function? @ -No Return precautions reviewed in depth, the patient is instructed to return to the emergency department with any new, worsening, or concerning symptoms. Patient verbalized understanding. This case was discussed in detail with the attending ED physician, Dr. Schwarz. Presentation, findings, and treatment plan discussed in detail as well. - Lab Data Lab Results 11/18/23 Range/Units 09:53 Influenza Type A (PCR) Not Detected (Not Detectd) Influenza Type B (PCR) Not Detected (Not Detectd) RSV (PCR) Not Detected (Not Detectd) SARS-CoV-2 (PCR) Not Detected (Not Detectd) - Radiology Data Radiology results: report reviewed, image reviewed Disposition Clinical Impression: URI (upper respiratory infection) Disposition: HOME SELF-CARE Instructions (If sedation given, give patient instructions): Upper Respiratory Infection (ED) Additional Instructions: Return to the emergency department with any new, worsening, or concerning symptoms. Take the antibiotic as prescribed for 5 days. You can take the Tessalon Perles up to 3 times daily as needed for coughing. Follow up with your primary care provider in 1-2 days. Prescriptions: Benzonatate [Tessalon Perle] 200 mg PO TID PRN #30 capsule PRN Reason: Cough Is patient prescribed a controlled substance at d/c from ED?: No Referrals: Luigi Roth MD [Primary Care Provider] - 1-2 days Time of Disposition: 11:43
--- NOTE | 2023-11-18 11:22 | XR ---
EXAMINATION TYPE: XR chest 2V DATE OF EXAM: 11/18/2023 10:20 AM CLINICAL INDICATION:Male, 88 years old with history of Cough; COMPARISON: Chest radiographs from 02/07/2023 TECHNIQUE: XR chest 2V Frontal and lateral views of the chest. FINDINGS: Lungs/Pleura: There is no evidence of pleural effusion, focal consolidation, or pneumothorax. Pulmonary vascularity: Unremarkable. Heart/mediastinum: Cardiomediastinal silhouette is enlarged and stable. Post aortic valve repair benny nges. Musculoskeletal: Multiple level degenerative disc disease changes seen throughout the spine. Other findings: None IMPRESSION: 1. No acute cardiopulmonary disease/process. 2. Cardiomegaly with post valvular repair changes.
[2023-11-18 12:21] VITALS: BP 139/69; PULSE 68; RESP 20
== END 2023-11-18 12:20 | disposition home or self-care (01) ==
LOC: EC 09:26
DX: J06.9 Acute upper respiratory infection, unspecified (principal); I10 Essential (primary) hypertension; E11.9 Type 2 diabetes mellitus without complications; E78.5 Hyperlipidemia, unspecified; I25.10 Atherosclerotic heart disease of native coronary artery without angina pectoris; Z79.899 Other long term (current) drug therapy; Z87.891 Personal history of nicotine dependence
CPT/HCPCS: 71046; 87636; 99283

== ENCOUNTER 2024-08-08 11:48 | Emergency (ER) | payer MEDICARE ==
[2024-08-08 11:57] VITALS: TEMP 100.1
[2024-08-08 11:59] VITALS: RESP 18
--- NOTE | 2024-08-08 12:55 | ED ---
URI HPI - General Chief Complaint: Upper Respiratory Infection Stated Complaint: cough Time Seen by Provider: 08/08/24 11:52 Source: patient, RN notes reviewed Mode of arrival: ambulatory Limitations: no limitations - History of Present Illness Initial Comments: 89-year-old male presents emergency department complaint of fever cough congestion. Symptoms for last couple days. Patient states he has a productive cough increasing nasal congestion no shortness of breath no chest pain no GI symptoms. Denies any sick contacts. - Related Data Home Medications Medication Instructions Recorded Confirmed Atorvastatin [Lipitor] 20 mg PO HS 01/22/14 08/13/22 Aspirin EC [Ecotrin Low Dose] 81 mg PO QAM 09/14/15 08/13/22 amLODIPine [Norvasc] 5 mg PO DAILY 09/14/15 08/13/22 carvediloL [Coreg] 12.5 mg PO DAILY 12/28/16 08/13/22 Cholecalciferol [Vitamin D3 (10 10 mcg PO DAILY 08/13/22 08/13/22 Mcg = 400 Iu)] guaiFENesin [Mucinex] 600 mg PO Q12H PRN 08/13/22 08/13/22 lisinopriL [Zestril] 5 mg PO DAILY 08/13/22 08/13/22 Previous Rx's Medication Instructions Recorded Cephalexin [Keflex] 500 mg PO Q6HR #40 cap 02/07/23 Furosemide [Lasix] 20 mg PO DAILY #5 tab 02/07/23 Benzonatate [Tessalon Perle] 200 mg PO TID PRN #30 capsule 11/18/23 Oseltamivir [Tamiflu] 75 mg PO Q12HR #10 cap 08/08/24 Allergies Allergy/AdvReac Type Severity Reaction Status Date / Time No Known Allergies Allergy Verified 08/08/24 11:57 Review of Systems ROS Statement: Those systems with pertinent positive or pertinent negative responses have been documented in the HPI. ROS Other: All systems not noted in ROS Statement are negative. Past Medical History Past Medical History: Coronary Artery Disease (CAD), Chest Pain / Angina, Heart Failure, Dementia, Diabetes Mellitus, Hyperlipidemia, Hypertension, Memory Impairment, Prostate Disorder Additional Past Medical History / Comment(s): NIDDM type II, neuropathy bila teral feet, nonischemic cardiomyopathy, BPH/PSA always high, frequent constipation, benign colon polyp, diverticular dx. History of Any Multi-Drug Resistant Organisms: None Reported Past Surgical History: Appendectomy, Cardiac Valve Replacement, Heart Catheterization, Hernia Repair Additional Past Surgical History / Comment(s): HEART CATH 07-02-14, Aortic valve replacement-bovine tissue valve 07/09/14, colonoscopy/benign polyp, hemorrhoidectomy, CATARACTS-WENDY. 2011, Past Anesthesia/Blood Transfusion Reactions: No Reported Reaction Past Psychological History: Depression Smoking Status: Former smoker Past Alcohol Use History: Occasional Past Drug Use History: None Reported - Past Family History Sister(s) Family Medical History: Cancer, Deep Vein Thrombosis (DVT) Additional Family Medical History / Comment(s): 2 SISTERS HAD DVT'S IN LEGS, ONE HAD OVARIAN CA Mother History Unknown: Yes Additional Family Medical History / Comment(s): Mother never discussed her health. Father Additional Family Medical History / Comment(s): Father did not believe in going to the doctors. General Exam Limitations: no limitations General appearance: alert, in no apparent distress Head exam: Present: atraumatic, normocephalic, normal inspection Eye exam: Present: normal appearance, PERRL, EOMI. Absent: scleral icterus, co njunctival injection, periorbital swelling ENT exam: Present: normal exam, normal oropharynx, mucous membranes moist Neck exam: Present: normal inspection, full ROM. Absent: tenderness, meningismus, lymphadenopathy Respiratory exam: Present: normal lung sounds bilaterally. Absent: respiratory distress, wheezes, rales, rhonchi, stridor Cardiovascular Exam: Present: regular rate, normal rhythm, normal heart sounds. Absent: systolic murmur, diastolic murmur, rubs, gallop, clicks Neurological exam: Present: alert, oriented X3, CN II-XII intact Course Vital Signs 08/08/24 11:51 Temperature 100.1 F H Pulse Rate 83 Respiratory 18 Rate Blood Pressure 148/71 O2 Sat by Pulse 99 Oximetry Medical Decision Making - Medical Decision Making Was pt. sent in by a medical professional or institution (, PA, OFFICE CORRESPONDENT, urgent care, hospital, or skilled nursing...) When possible be specific @ -No Did you speak to anyone other than the patient for history (EMS, parent, family, police, friend...)? What history was obtained from this source @ -No Did you review nursing and triage notes (agree or disagree)? Why? @ -I reviewed and agree with nursing and triage notes Were old charts reviewed (outside hosp., previous admission, EMS record, old EKG, old radiological studies, urgent care reports/EKG's, skilled nursing records)? Report findings @ -No old charts were reviewed Differential Diagnosis (chest pain, altered mental status, abdominal pain women, abdominal pain men, vaginal bleeding, weakness, fever, dyspnea, syncope, headache, dizziness, GI bleed, back pain, seizure, CVA, palpatations, mental health, musculoskeletal)? @ -COVID 19, RSV, influenza, pneumonia, acute bronchitis, URI, this list is not all inclusive EKG interpreted by me (3pts min.). @ -None X-rays interpreted by me (1pt min.). @ -X-ray shows no acute cardiopulmonary process CT interpreted by me (1pt min.). @ -None done U/S interpreted by me (1pt. min.). @ -None done What testing was considered but not performed or refused? (CT, X-rays, U/S, labs)? Why? @ -None What meds were considered but not given or refused? Why? @ -None Did you discuss the management of the patient with other professionals (professionals i.e. , PA, OFFICE CORRESPONDENT, lab, RT, psych nurse, psychologist social, french comber, teacher, ammunition officer, renal case manager)? Give summary @ -No Was smoking cessation discussed for >3mins.? @ -No Was critical care preformed (if so, how long)? @ -No Were there social determinants of health that impacted care today? How? (Homelessness, low income, unemployed, alcoholism, drug addiction, transpo rtation, low edu. Level, literacy, decrease access to med. care, care home, rehab)? @ -No Was there de-escalation of care discussed even if they declined (Discuss DNR or withdrawal of care, Hospice)? DNR status @ -No What co-morbidities impacted this encounter? (DM, HTN, Smoking, COPD, CAD, Cancer, CVA, ARF, Chemo, Hep., AIDS, mental health diagnosis, sleep apnea, morbid obesity)? @ -None Was patient admitted / discharged? Hospital course, mention meds given and route, prescriptions, significant lab abnormalities, going to OR and other pertinent info. @ -Discharge patient is influenza A positive. Chest x-ray is unremarkable patient treated with Tamiflu return parameters were discussed. Undiagnosed new problem with uncertain prognosis? @ -No Drug Therapy requiring intensive monitoring for toxicity (Heparin, Nitro, Insulin, Cardizem)? @ -No Were any procedures done? @ -No Diagnosis/symptom? @ -Influenza A Acute, or Chronic, or Acute on Chronic? @ -Acute Uncomplicated (without systemic symptoms) or Complicated (systemic symptoms)? @ -Uncomplicated Side effects of treatment? @ -No Exacerbation, Progression, or Severe Exacerbation? @ -No Poses a threat to life or bodily function? How? (Chest pain, USA, MA, pneumonia, PE, COPD, DKA, ARF, appy, cholecystitis, CVA, Diverticulitis, Homicidal, Suicidal, threat to staff... and all critical care pts) @ -No - Lab Data Lab Results 08/08/24 Range/Units 12:23 Influenza Type A (PCR) Detected A (Not Detectd) Influenza Type B (PCR) Not Detected (Not Detectd) RSV (PCR) Not Detected (Not Detectd) SARS-CoV-2 (PCR) Not Detected (Not Detectd) Disposition Clinical Impression: Influenza A Disposition: HOME SELF-CARE Condition: Stable Instructions (If sedation given, give patient instructions): Influenza (ED) Additional Instructions: Please return to the Emergency Department if symptoms worsen or any other concerns. Prescriptions: Oseltamivir [Tamiflu] 75 mg PO Q12HR #10 cap Is patient prescribed a controlled substance at d/c from ED?: No Referrals: Luigi Roth MD [Primary Care Provider] - 1-2 days Time of Disposition: 13:37
--- NOTE | 2024-08-08 12:58 | XR ---
EXAMINATION TYPE: XR chest 2V DATE OF EXAM: 08/08/2024 COMPARISON: 11/18/2023 CLINICAL INDICATION: Male, 89 years old with history of sob; , TECHNIQUE: XR chest 2V views of the chest. FINDINGS: The lungs are clear and there is no or pleural effusion. Heart size normal and no overt failure. Os seous structures demonstrate hypertrophic and degenerative changes of the spine. Post median sternoto my changes. Arthropathy of the shoulders. Prosthetic heart valve. Basilar atelectasis favored over in filtrate. Indication along the left clavicle. IMPRESSION: 1. Bibasilar atelectasis favored over infiltrate. Correlate clinically. [facility], , 08/08/2024 12:56 PM
[2024-08-08 13:46] VITALS: BP 136/81; PULSE 89
== END 2024-08-08 13:46 | disposition home or self-care (01) ==
LOC: EC 11:48
DX: J10.1 Influenza due to other identified influenza virus with other respiratory manifestations (principal); Z87.891 Personal history of nicotine dependence
CPT/HCPCS: 71046; 87636; 99283